=== PATIENT | male | born 1960 | race African-American/Black ===

== ENCOUNTER 2016-09-22 16:07 | Inpatient (IN) | payer MEDICARE ==
[~2016-09-22] VITALS: Ht 165.1 cm; Wt 96.5 kg
--- NOTE | ~2016-09-22 | HEMODYNAMI ---
PATIENT:TOAN BENTLEY MEDICAL RECORD: [id number] : 64 [id number] ADMISSION DATE: 09/22/16 Generatedon:09/23/201615:32 Patient name: TOAN BENTLEY Patient #: [id number] SSN: [id number] : 1960 Date of study: 09/23/2016 Page: Of Hemodynamic Procedure Report Patient Data Patient Demographics Procedure consent was obtained First Name: TOAN Gender: Male Last Name: SHEREE : 1960 Patient #: [id number] Age: 56 year(s) Race: Black SSN: [id number] Additional ID: [id number] Contact details Address: [address] [place] [address] State: [place] City: [place] Zip code: [address] Past Medical History Allergies: No known allergies Admission Admission Data Admission Date: 09/22/2016 Admission Time: 16:07 Admit Source: Other Insurance Payor: Medicare Room #: D.2135 Height (in.): 65 BSA: 2.06 (m2) Height (cm.): 165.1 BMI: 36.61 (kg/m2) Weight (lbs.): 220 Weight (kg.): 99.79 Lab Results Lab Result Date: 09/23/2016 Lab Result Time: 4:58 Biochemistry Name Units Result Min Max Creatinine mg/dl 3.7 --(----)-* 0.6 1.3 CBC Name Units Result Min Max Hemoglobin g/dl 8.1 *-(----)-- 13.5 17.5 Procedure Procedure Types Cath Procedure Diagnostic Procedure C [facility] w/Coronaries Miscellaneous Procedures Moderate Sedation up to 15 minutes Procedure Description Procedure Date Procedure Date: 09/23/2016 Procedure Start Time: 15:19 Procedure End Time: 15:29 Procedure Staff Name Function Prem Kenney MD Performing Physician Teodoro Hurd RT Scrub Damon Covington RN Nurse Bert Mack RT Monitor Indication Angina Procedure Data Cath Procedure Fluoroscopy Diagnostic fluoroscopy Total fluoroscopy Time: 1.2 time: 1.2 min min Diagnostic fluoroscopy Total fluoroscopy dose: 443 dose: 443 mGy mGy Contrast Material Contrast Material Type Amount (ml) Isovue 300 64 Entry Location Entry Primary Successful Side Size Upsize Upsize Entry Closure Succes sful Closure Location (Fr) 1 (Fr) 2 (Fr) Remarks Device Remarks Femoral Right 5 Fr Exoseal artery Estimated blood loss: 5 ml Diagnostic catheters Device Type Used For End Catheter Placement Cordis 5Fr JL 4.0 Procedure Catheter (MP) Cordis 5Fr 3DRC Catheter Procedure (MP) Cordis 5Fr Pigtail Procedure Catheter (MP) Procedure Complications No complications Procedure Medications Medication Administration Route Dosage Oxygen NC 2 l/min Lidocaine 2% added to field 20 Heparin Flush Bag added to field 2 bags (1000units/500ml NS) 0.9% NaCl I.V. 50 ml/hr Versed I.V. 1 mg Fentanyl I.V. 50 mcg Versed I.V. 1 mg Fentanyl I.V. 50 mcg Fentanyl I.V. 50 mcg Hemodynamics Rest BSA: 2.06 (m2) HGB: 8.1 (g/dl) O2 Consumption: Estimated: 252.72 (ml/min) O2 Con sumption indexed: Estimated:122.68 (ml/min/m) Heart Rate: 80 (bpm) Pressure Samples Time Site Value (mmHg) Purpose Heart Use Rate(bpm) 15:24 LV 136/12,22 Snapshot 77 15:25 AO 126/66(93) Pullback 77 15:25 LV 129/8,19 Pullback 77 Gradients Valve Time Site 1 Site 2 Mean SEP/DFP Peak To Heart Use (mmHg) (sec/min) Peak Rate (mmHg) (bpm) Aortic 15:25 LV AO 22 18 3 77 129/8,19 126/66(93) Calculations Valve P-P Mean Valve Index Valve Source Name Gradient Area Flow (cm2) Aortic 3 22 3 22 Snapshots Pre Cath Intra NCS Post Cath Vital Signs Time Heart Resp SPO2 etCO2 [id number] NIBP (mmHg) Rhythm Pain Sedation Rate (ipm) (%) (mmHg) (mmHg) Status Level (bpm) 14:46:28 73 18 96 0 0 153/83(120) NSR 0 (11) 10(A) , No pain 14:50:49 73 15 98 0 0 150/80(122) NSR 0 (11) 10(A) , No pain 14:55:11 69 22 99 0 0 148/78(126) NSR 0 (11) 10(A) , No pain 14:59:33 72 17 98 0 0 147/80(123) NSR 0 (11) 10(A) , No pain 15:03:51 71 15 96 0 0 153/79(116) NSR 0 (11) 10(A) , No pain 15:08:07 74 16 96 0 0 149/73(109) NSR 0 (11) 10(A) , No pain 15:12:19 76 16 96 0 0 145/80(131) NSR 0 (11) 10(A) , No pain 15:16:39 71 17 94 0 0 141/84(93) NSR 0 (11) 10(A) , No pain 15:20:59 69 16 97 0 0 138/78(111) NSR 0 (11) 9(A) , No pain 15:25:13 76 17 96 0 0 133/78(109) NSR 0 (11) 10(A) , No pain 15:27:51 72 15 96 0 0 138/79(102) NSR 0 (11) 10(A) , No pain Medications Time Medication Route Dose Verified Delivered Reason Notes Effe ctiveness by by 14:45:38 Oxygen NC 2 Prem Buffie used for l/min [facility] Kyle Covington trumpet player 15:10:13 Lidocaine 2% added 20ml Prem Prem for local to vial [facility] anesthetic field MD GRACIA 15:10:18 Heparin Flush added 2 Prem Prem used for Bag to bags [facility] procedure (1000units/500ml field MD GRACIA NS) 15:10:27 0.9% NaCl I.V. 50 Prem Buffie Per ml/hr [facility]. Kyle Coivngton RN physician 15:16:48 Versed I.V. 1 mg Prem Buffie for [facility] Kyle Covington RN sedation 15:16:53 Fentanyl I.V. 50 Prem Buffie for mcg [facility] Kyle Covington RN sedation 15:21:18 Versed I.V. 1 mg Prem Buffie for [facility] Kyle Covington RN sedation 15:21:22 Fentanyl I.V. [address] [facility] St[facility] Kyle Covington RN sedation 15:24:45 Fentanyl I.V. [address] [facility] St[facility] Kyle Covington RN sedation Procedure Log Time Note 14:20:28 Teodoro Hurd RT(R) sent for patient. Start room use. 14:29:33 Informed consent obtained and on chart 14:29:55 Diagnostic Cath Status : Elective 14:30:17 Indication : Angina 14:30:34 Time tracking: Regular hours 14:30:39 Plan of Care:Hemodynamics will remain stable., Cardiac rhythm will remain stable., Comfort level will be maintained., Respiratory function will remain adequate., Patient/ family verbilizes understanding of procedure., Procedure tolerated without complication., Recovers from procedure without complications.. 14:38:03 Patient received from Med II to CCL 1 Alert and oriented. Tansferred to table in Supine position. 14:38:04 Warm blankets applied, and rebel hugger turned on for patient comfort. 14:38:04 Correct patient and procedure confirmed by team. 14:38:16 ECG and BP/O2 sat monitors applied to patient. 14:45:13 Vital chart was started 14:45:17 Baseline sample Acquired. 14:45:20 Rhythm: sinus rhythm 14:45:38 Oxygen 2 l/min NC was given by Damon Covington RN; used for procedure; 14:46:35 Lab results completed and on chart. 14:47:07 Lab Result : Creatinine 3.7 mg/dl 14:47:07 Lab Result : Hemoglobin 8.1 g/dl 14:50:19 H&P Date Dictated: 09/22/2016 Within 30 days and on chart.. 14:50:21 Pre-procedure instructions explained to patient. 14:50:21 Pre-op teaching completed and patient verbalized understanding. 14:50:33 Family in patients room. 14:51:21 Patient NPO since Midnight. 14:52:56 Patient allergic to No known allergies 14:53:01 Is the patient allergic to Iodine/contrast media? No. 14:53:03 Is patient on blood thinner?No 14:53:50 Patient diabetic? No. 14:53:55 Previous problem with sedation/anesthesia? No ? 14:53:56 Snore? Yes 14:53:57 Sleep apnea? No 14:53:58 Deviated septum? No 14:53:58 Opens mouth fully? Yes 14:53:59 Sticks out tongue? Yes 14:54:01 Airway obstruction? No ? 14:54:02 Dentures? No ? 14:54:07 Pre procedure: right dorsailis pedis pulse 1+ Palpable, but thready & weak; easily obliterated 14:54:09 Patient pain scale 0/10 ?. 14:54:16 IV patent on arrival in right forearm with 0.9% NaCl at [facility]. 14:54:45 Right groin area was prepped with chlora-prep and draped in sterile fashion 14:54:46 Alarms reviewed by R. N. 14:54:47 Sharps counted by scrub and verified by R.N. 14:54:55 Use device set Femoral Dx 14:54:58 Tegaderm 4 x 4 opened to sterile field. 14:54:58 Acist Manifold opened to sterile field. 14:54:59 Acist Hand Control opened to sterile field. 14:55:00 Acist Syringe opened to sterile field. 14:55:01 Bag Decanter opened to sterile field. 14:55:01 Cardinal Cath Pack opened to sterile field. 14:55:02 Terumo 5Fr Perry Sheath opened to sterile field. 14:55:03 Cordis Infinity 5Fr Multipack catheter opened to sterile field. 14:59:01 Patient Weight : 220 lbs 14:59:01 Patient Height : 65 inches 14:59:05 Admit Source: Other 14:59:15 Insurance Payor : Medicare 15:10:13 Lidocaine 2% 20ml vial added to field was given by Prem Kenney MD; for local anesthetic; 15:10:18 Heparin Flush Bag (1000units/500ml NS) 2 bags added to field was given by Prem Kenney MD; used for procedure; 15:10:27 0.9% NaCl 50 ml/hr I.V. was given by Damon Covington RN; Per physician; 15:11:13 Zero performed for pressure channel P1 15:15:38 Physician arrived 15:15:39 --------ALL STOP TIME OUT------ 15:15:39 Final Timeout: patient, procedure, and site verified with staff and physician. All members of the team are in agreement. 15:15:41 Right groin site verified by team. 15:15:44 Physical assessment completed. ASA score P 3 - A patient with severe systemic disease as per Prem Kenney MD. 15:15:47 Sedation plan: IV Moderate Sedation Versed, Fentanyl 15:16:48 Versed 1 mg I.V. was given by Damon Covington RN; for sedation; 15:16:53 Fentanyl 50 mcg I.V. was given by Damon Covington RN; for sedation; 15:19:05 Procedure started. 15:19:05 Full Disclosure recording started 15:19:08 Local anesthetic to right femoral artery with Lidocaine 2% by Prem Kenney MD.INITIAL ACCESS ONLY 15:19:16 A 5 Fr sheath was inserted into the Right Femoral artery 15:20:39 A Cordis 5Fr JL 4.0 Catheter (MP) was advanced over the wire and used for Procedure. 15:20:40 LCA angiography performed. 15:21:18 Versed 1 mg I.V. was given by Damon Covington RN; for sedation; 15:21:22 Fentanyl 50 mcg I.V. was given by Damon Covington RN; for sedation; 15:21:52 Catheter removed. 15:22:23 A Cordis 5Fr 3DRC Catheter (MP) was advanced over the wire and used for Procedure. 15:23:12 RCA angiography performed. 15:23:18 Catheter removed. 15:23:22 A Cordis 5Fr Pigtail Catheter (MP) was advanced over the wire and used for Procedure. 15:24:16 St Hany 260cm J .035 wire opened to sterile field. 15:24:38 LV hemodynamics recorded. 15:24:42 Injector settings: Ml/sec: 10, Volume: 20, 15:24:45 Fentanyl 50 mcg I.V. was given by Damon Covington RN; for sedation; 15:24:51 LV gram done using SANTO 15:24:54 EF : 55 % 15:24:58 Catheter removed. 15:25:05 Cordis 5Fr Exoseal opened to sterile field. 15:25:49 Sheath removed intact; hemostasis achieved with Exoseal to the Right Femoral artery. 15:25:55 Procedure ended.(Physican Out) 15::21 Fluoroscopy time 01.20 minutes. 15:: Fluoroscopy dose: 443 mGy 15:26:26 Flurop Dose total: 443 15:27:09 Contrast amount:Isovue 300 64ml. 15:27:10 Sharps counted by scrub and verified by R.N. 15:27:13 Insertion/operative site no bleeding no hematoma. 15:27:16 Post-op/insertion site Right Femoral artery dressed using a 4 x 4 and Tegaderm. 15:27:19 Post right femoral artery:stable, soft, clean and dry 15:27:27 Post Procedure Pulses reassessed and unchanged 15:27:30 Post procedure rhythm: unchanged. 15:27:34 Post-procedure physical assessment completed. ASA score P 3 - A patient with severe systemic disease as per Prem Kenney MD. 15:27:37 Estimated blood loss: 5 ml 15:27:38 Post procedure instruction explained to patient.Patient verbalizes understanding. 15:27:39 Patient needs reinforcement of post procedure teaching. 15:28:06 Procedure type changed to Cath procedure, Diagnostic procedure, LHC, LHC w/Coronaries, Miscellaneous Procedures, Moderate Sedation up to 15 minutes 15:28:53 Procedure and supply charges have been captured, reviewed, submitted and are correct. 15:28:56 Procedure Complication : No complications 15:28:59 Vital chart was stopped 15:29:01 See physician's report for complete and final results. 15:29:08 Report given to PCU. 15:29:11 Patient transfered to PCU with Stretcher. 15:29:14 Procedure ended. 15:29:14 Full Disclosure recording stopped 15:29:31 End room use (Document Last) Device Usage Item Name Manufacture Quantity Catalog Hospital Part Current Minimal Lo t# / Number Charge Number Stock Stock Serial# Code Tegaderm 1 [id number] [id number] [id number] 5 4 x 4 Acist Acist 1 94302 798451 162003 287901 5 Manifold Medical Systems Inc Acist Acist 1 02456 039257 852632 858826 5 Hand Medical Control Systems Inc Acist Acist 1 97373 044145 460621 865198 20 Syringe Medical Systems Inc Bag Microtek 1 2002S 306023 08829 931475 5 [employer] Cardinal Cardinal [address] 645776 40636 423480 5 Cath Pack Soundflavor Terumo Terumo 1 [id number] 659179 526927 555611 40 5Fr Perry Sheath Cordis Cardinal 1 [id number] 505345 78743 505681 30 artandseekity Health 5Fr Multipack catheter Cordis Cardinal 1 073032 5 5Fr JL Health 4.0 Catheter (MP) Cordis Cardinal 1 358628 5 5Fr 3DRC Health Catheter (MP) Cordis Cardinal 1 805303 5 5Fr Health Pigtail Catheter (MP) St Hany St Hany 1 873454 021806 745617 511516 30 260cm J .035 wire Cordis Cardinal 1 EX500 337181 424680 803332 10 5Fr Health Exoseal Signature Audit Maxie Stage Time Signature Unsigned Intra-Procedure 09/23/2016 Bert Mack 3:32:38 PM RT(R) Signatures Monitor : Bert Mack RT Signature : Date : Time : [address] [address]
[~2016-09-22 16:07] MED LIST: HYDRALAZINE HCL25 MG PO; KLOR-CON M2020 MEQ PO; LASIX80 MG PO; NORMODYNE / TR200 MG PO; ULTRAM50 MG PO
[2016-09-22] MEDS ORDERED: ZOFRAN4 MG PO (16:27)
[2016-09-22] MEDS ORDERED: ENDOCET 10-3251 TAB PO (16:27)
[2016-09-22 16:39] VITALS: BP 123/83; BMI 38.0
[2016-09-22 16:45] VITALS: BP 128/83
[2016-09-22 20:02] VITALS: BP 209/98
--- NOTE | 2016-09-22 20:46 | NUR ---
AWAKE,ALERT, SITTING ON SIDE OF BED. COMPLAINS OF NAUSEA. ZOFRAN 4MG PO GIVEN PER REQUEST.SL TO RIGHT FOREARM INTACT WITHOUT REDNESS OR EDEMA NOTED. HEMISPLIT TO RIGHT CHEST WITHOUT REDNESS OR EDEMA. YU TO LEFT FORARM INTACT. NO DRAINAGE OR REDNESS NOTED. CL IN REACH.
--- NOTE | 2016-09-23 01:02 | NUR ---
Mr. Cancino had bedside hemodialysis today via his right chest hemosplit from 2154 untill 0032. Averageblood flow was 450 mls/minute. Removed the 350 mls from the volume of the prbc's I transfused as well as 3500 mls. Post vital signs were: B/P: 127/62, HR: 68, Temp: 97.5, Resps: 18.
[2016-09-23 01:11] VITALS: BP 139/74
--- NOTE | 2016-09-23 02:56 | NUR ---
RESTING QUIETLY. NO DISTRESS NOTED. CL IN REACH.
[2016-09-23 04:36] VITALS: BP 182/90
[2016-09-23 05:34] LABS: CALCIUM 8.8 mg/dL (8.5-10.1); CARBON DIOXIDE 29.6 mmol/L (21.0-32.0); CREATININE - SERUM 3.7 mg/dL (0.6-1.3); POTASSIUM - SERUM 3.6 mmol/L (3.5-5.1)
[2016-09-23 05:46] LABS: BASOPHILS 0.4 % (0.0-2.0); EOSINOPHILS 0.7 % (0-7); HEMATOCRIT 25.7 % (42.0-54.0); HEMOGLOBIN 8.1 g/dL (13.5-17.5); IMMATURE GRANULOCYTES 0.2 % (0-5); LYMPHOCYTES 14.5 % (15-50); MCH 26.8 pg (26.0-34.0); MCHC 31.5 g/dL (31.0-37.0); MCV 85.1 fL (80.0-100.0); MEAN PLATELET VOLUME 9.1 fL (7.4-10.4); MONOCYTES 7.8 % (2-11); NEUTROPHILS 76.4 % (40-80); PLATELET COUNT 247 10x3/uL (130-400); RBC 3.02 10x6/uL (4.20-6.10); RDW 14.5 % (11.5-14.5); WBC 8.5 10x3/uL (4.8-10.8)
--- NOTE | 2016-09-23 05:53 | NUR ---
AROUSES EASILY TO VERBAL STIMUL. NO CHANGE IN ASSESSSMENT
--- NOTE | 2016-09-23 07:26 | NUR ---
PT WAS OFFERED SCDS FOR DVT PROPHYLACTICS BUT PT REQUESTED TO NOT HAVE THEM IF POSSIBLE. ALLOWED PT TO REFUSE. NO FURTHER NEEDS AT THIS TIME. WILL CTM.
[2016-09-23 08:00] VITALS: BP 161/84
--- NOTE | 2016-09-23 10:08 | NUR ---
RESP UL ON 02 3L NC. YU TO LEFT ARM INTACT. CONSENTS SIGNED FOR [facility]. WILL CONT. PLAN OF CARE.
--- NOTE | 2016-09-23 11:21 | NUR ---
REC'D REPORT FROM TAMMIE OLIVER. ASSUMED CARE FOR THIS PT. INTRODUCED MYSELF TO PT, PT DENIES ANY CURRENT NEEDS. WILL CPOC.
[2016-09-23 12:00] VITALS: BP 141/77
[2016-09-23 12:19] VITALS: Ht 165.1 cm; Wt 96.5 kg
--- NOTE | 2016-09-23 13:21 | CN ---
PATIENT NAME:TOAN BENTLEY MEDICAL RECORD: [id number] : 64 LOCATION:[facility] D.2135 ADMIT DATE: 09/22/16 ACCOUNT: [id number] CONSULTING PHYSICIAN: VAMSHI BREWER MD REFERRING PHYSICIAN: RE CORCORAN MD DATE OF CONSULTATION: 09/23/2016 REFERRING PHYSICIAN: Re Corcoran MD. REASON FOR CONSULTATION: Chest pain. HISTORY OF PRESENT ILLNESS: This is a 56-year-old -Cuban male with a known history of cardiovascular disease. He had been seen in the past by Dr. Tilley and had a left heart cath back in 2012 and was told he had a 40% lesion, it is unknown as to what vessel. Other ongoing medical history includes a solitary kidney. He is status post right nephrectomy, hypertension, CHF and end-stage renal disease, on dialysis, for about 7 months. He presented to the [facility] with chest pain for 3 days with worsening shortness of breath, was noted to have an elevated proBNP of greater than 6000 with a normal troponin and EKG shows nonspecific T-wave abnormalities. He was transferred to [facility] under the care of Dr. Re Corcoran. He underwent emergent hemodialysis with 3.5 L fluid removal. We have been asked to see the patient due to his chest discomfort. At this point, we would proceed with a left heart cath to evaluate for progression of his coronary artery disease. REVIEW OF SYSTEMS: As per HPI. MEDICATIONS: See MAR. PHYSICAL EXAMINATION: GENERAL: Reveals a well-developed, well-nourished -Cuban male in no distress at the time of the exam. VITAL SIGNS: Stable. HEENT: Head is normocephalic. Pupils are equal and reactive to light. Extraocular muscles are intact. The mucous membranes are pink and moist. NECK: Supple. Trachea is midline. There is no JVD or carotid bruits. CARDIOVASCULAR: Reveals a regular rate and rhythm without murmur, gallop or rub. LUNGS: Clear and diminished bilaterally. ABDOMEN: Soft, bowel sounds positive. EXTREMITIES: He has no clubbing or cyanosis. He has a left upper arm fistula with a positive thrill and bruit. NEUROLOGIC: Cranial nerves II-XII are grossly intact. LABORATORY DATA: Have been reviewed. ASSESSMENT AND PLAN: 1. Chest pain with known history of coronary artery disease per patient report with a left heart cath [place] [address] Tilley with a 40% noted a lesion of unknown vessel origin. The patient does have negative cardiac enzymes, but nonfocal changes on his EKG. 2. Pulmonary edema. He is post-emergent hemodialysis with ultrafiltration of 3.5 L. 3. End-stage renal disease. This is being managed and followed by Dr. Marroquin CONSULT REPORT [id number] TOAN BENTLEY. 4. Hypertension. 5. Solitary kidney. RECOMMENDATIONS: Left heart cath. Further recommendations to follow. TRANSINT:[id number] Voice Confirmation ID: [id number] DOCUMENT ID: [id number] Dictated By: BETHANY FRIAS I have interviewed/examined the above patient and agree with these documented findings. VAMSHI BREWER MD at 1321 at 0948 CC: [id number] DICTATION DATE: 09/23/16 0829 FOUNDER AND PRESIDENT: 09/23/16 1041 ADM IN [place] [address] [place] [address]
--- NOTE | 2016-09-23 13:24 | NUR ---
TOWEL HEMMER CALLED FOR PREOP. PREOP COMPLETED. PT RESTING QUIETLY AWAITING PROCEDURE.
--- NOTE | 2016-09-23 14:32 | NUR ---
PT LEAVING FOR WIRE TEMPERER NOW.
[2016-09-23 16:00] VITALS: BP 134/65
--- NOTE | 2016-09-23 20:00 | NUR ---
PT RESTING IN BED. ALERT/ORIENTED. RESERVE LEFT ARM. RIGHT CHEST WALL HEMOSPLIT. HAS YU ON INNER LEFT FOREARM /AC AREA FROM WHERE HIS FISTULA WAS REMOVED 10 DAYS AGO. PERMISSION HAS BEEN GIVEN TO REMOVE YU. SR PER TELEMETRY. REVIEWED PLAN OF CARE.
[2016-09-23 20:39] VITALS: BP 104/37
--- NOTE | 2016-09-23 23:03 | NUR ---
HS MEDS GIVEN. MEDICATED WITH PERCOCET FOR PAIN AND THEN REMOVED ALL THE YU TO LEFT FOREARM/AC AREA FROM WHERE FISTULA WAS REMOVED. APPLIED STERI STRIPS TO INCISION. SITE WITH NO DRAINAGE OR REDNESS. WILL MONITOR.
[2016-09-24 00:47] VITALS: BP 107/41
[2016-09-24 04:56] VITALS: BP 108/52
[2016-09-24 05:38] LABS: BASOPHILS 0.4 % (0.0-2.0); EOSINOPHILS 2.7 % (0-7); HEMATOCRIT 24.5 % (42.0-54.0); HEMOGLOBIN 7.8 g/dL (13.5-17.5); IMMATURE GRANULOCYTES 0.2 % (0-5); LYMPHOCYTES 26.7 % (15-50); MCH 27.2 pg (26.0-34.0); MCHC 31.8 g/dL (31.0-37.0); MCV 85.4 fL (80.0-100.0); MEAN PLATELET VOLUME 8.8 fL (7.4-10.4); MONOCYTES 11.3 % (2-11); NEUTROPHILS 58.7 % (40-80); PLATELET COUNT 223 10x3/uL (130-400); RBC 2.87 10x6/uL (4.20-6.10); RDW 14.7 % (11.5-14.5)
[2016-09-24 05:45] LABS: WBC 5.7 10x3/uL (4.8-10.8)
[2016-09-24 06:00] LABS: ANION GAP 12.4 mmol/L (8-16); CALCIUM 8.8 mg/dL (8.5-10.1); CARBON DIOXIDE 30.3 mmol/L (21.0-32.0); POTASSIUM - SERUM 3.7 mmol/L (3.5-5.1)
[2016-09-24 06:01] LABS: CREATININE - SERUM 6.5 mg/dL (0.6-1.3); PHOSPHOROUS 5.5 mg/dL (2.5-4.9)
--- NOTE | 2016-09-24 06:39 | NUR ---
PT RESTING IN BED. NO CHANGE FROM INITIAL SHIFT ASSESSMENT, EXCEPT THAT ALL THE YU HAVE BEEN REMOVED FROM LEFT ARM AND HE TOLERATED WELL.
[2016-09-24 08:26] VITALS: BP 148/71
--- NOTE | 2016-09-24 11:14 | NUR ---
Patient Name: TOAN BENTLEY Admission Status: Elective Accout number: [id number] Admission Date: 09-22-2016 : 1960 Admission Diagnosis: Attending: STEVEN Current LOS: 2 Anticipated DC Date: 09-24-2016 Planned Disposition: Home Primary Insurance: MEDICARE A & B Discharge Planning Comments: * Is the patient Alert and Oriented? Yes 0 * How many steps to enter\exit or inside your home? 3-4 0 * PCP DR. FLORES, [place] 0 * Pharmacy [facility] [place] * Preadmission Environment Home with Family 0 * ADLs Independent 0 * Equipment None 0 * Other Equipment NO MEDICAL EQUIPMENT PROVIDER PREFERENCE 0 * List name and contact numbers for known caregivers / representatives who currently or will assist patient after discharge: JEANINE BENTLEY, SISTER, 0 * Community resources currently utilized Other 0 * Please name any agencies selected above. OUTPATIENT DIALYSIS, [facility] M//, 0645 AM, PT DRIVES SELF 0 * Additional services required to return to the preadmission environment? No 0 * Can the patient safely return to the preadmission environment? Yes 0 * Has this patient been hospitalized within the prior 30 days at any hospital? No 0 CM MET WITH PT IN ROOM TO DISCUSS DISCHARGE PLANNING AND NEEDS. PT REPORTS LIVING AT HOME INDEPENDENTLY WITH ADULT SISTER. PT HAS NO MEDICAL EQUIPMENT AND NO OUTSIDE SERVICES ASSISTING IN THE HOME. PT DRIVES HIMSELF TO AND FROM OUTPATIENT DIALYSIS IN [place] ON // SCHEDULE. CM DISCUSSED AVAILABILITY OF HOME HEALTH, REHAB SERVICES AND MEDICAL EQUIPMENT. PT DENIES DISCHARGE NEEDS, REPORTS HIS SISTER WILL PICK HIM UP FOR DISCHARGE HOME. IMPORTANT MESSAGE FROM MEDICARE PROVIDED AND EXPLAINED. Rating Examiner: Julio Cesar Oseguera
--- NOTE | 2016-09-24 11:21 | NUR ---
PT RESTING QUIETLY IN BED WATCHING TV. RR NONLABORED. DENIES ANY CURRENT PAIN OR NEEDS, AWAITING DIALYSIS SO HE CAN D/C AFTER IT TODAY.
[2016-09-24 12:10] VITALS: BP 122/69
[2016-09-24 16:25] VITALS: BP 130/63
--- NOTE | 2016-09-24 19:09 | NUR ---
D/C PTS R.FA PIV WITH CATHETER TIP FULLY INTACT. PROVIDED PT WITH NAUSEA MED AND PAIN PILL. DISCHARGE INSTRUCTIONS COMPLETED AND SIGNED IN CHART. NO FURTHER NEEDS, READY FOR DISCHARGE.
--- NOTE | 2016-09-27 08:57 | DS ---
PATIENT:TOAN BENTLEY :64 MEDICAL RECORD: [id number] DISCHARGE SUMMARY ADMISSION DATE: 09/22/16 DISCHARGE DATE: 09/24/16 HOSPITAL COURSE: This is a gentleman that was transferred from the [facility] with shortness of breath and pulmonary edema. He had been having some off and on chest pain for which he was brought down here to [place] and had a heart catheter with no significant vascular disease. He is going to have dialysis today with a unit of blood and will be discharged home on his home medications without any changes. He is on a renal diet with fluid restriction and we did need to adjust his dry weight. MEDICATIONS: Lasix is 80 mg a day on nondialysis days and if he needs too, he can take a second dose in the afternoon, labetalol 400 t.i.d., hydralazine 50 t.i.d., oxycodone 10/325 p.r.n., and Valium 5 mg q.h.s. p.r.n. and he does have some nitroglycerin ointment if he does need it. Rest of his review of systems are negative. He will follow up at dialysis. PHYSICAL EXAMINATION: GENERAL: He is alert and oriented times 3. HEENT: Normocephalic, atraumatic. HEENT: Grossly clear. VITAL SIGNS: Blood pressure 148/71, 96 pulse ox, 77 pulse and 98.1 temperature. EXTREMITIES: No clubbing, cyanosis or edema. Dialysis access, we removed the marva in his left arm, and he has an IJ tunneled catheter which is free of infection. Hematocrit was 24.5, but he is receiving a unit of blood the day prior to discharge. DIET: Continue with his renal diet. FOLLOWUP: At [facility] as scheduled, Tuesday, Wednesdays, and Fridays. He is to return to the Emergency Room for any problems. Stable on discharge. TRANSINT:[id number] Voice Confirmation ID: [id number] DOCUMENT ID: [id number] RE VASQUEZ MD at 0857 CC: [id number] DICTATION DATE: 09/24/16 1216 BUFFER MACHINE: 09/24/162211 DIS IN 09/24/16 [place] [id number] [facility], [place] [address]
--- NOTE | 2016-09-28 09:30 | OP ---
PATIENT NAME: TOAN BENTLEY MEDICAL RECORD: [id number] :64 LOCATION:D.M2 D.2135 ADMISSION DATE:09/22/16 SURGEON: VAMSHI BREWER MD DATE OF OPERATION: 09/23/2016 PROCEDURES: Left heart catheterization, selective coronary angiography, right femoral artery approach. CATHETERS: A 5-Haitian sheath, 5/4 left and right Duran, 5/4 pig. The procedure was well tolerated. The patient returned to the malave, sheath was removed. ExoSeal device was placed. FINDINGS: Left ventriculography in 30-degree SANTO view. Normal wall motion and normal systolic function. CORONARY ANATOMY: Left main: Left main is free of disease. LAD: Free of disease in the diagonal system. CIRCUMFLEX: Left dominant system. Circumflex is a large vessel, free of disease. RIGHT CORONARY ARTERY: Rudimentary, still fairly large, free of disease. IMPRESSION: Normal systolic function. Normal coronary anatomy. TRANSINT:[id number] Voice Confirmation ID: [id number] DOCUMENT ID: [id number] VAMSHI BREWER MD at 0930 CC: [id number] DICTATION DATE: 09/23/16 1536 RUBBER AND PLASTICS WORKER: 09/23/16 1606 DIS IN 09/24/16 [place] [id number] [place] [address]
== END 2016-09-24 19:11 | disposition home or self-care (01) | DRG 286 ==
LOC: D.M2 16:07
PROVIDERS: Internal Medicine Interventional Cardiology; ADMIT Internal Medicine Nephrology
PROC: 5A1D60Z (ICD-10-PCS; 2016-09-22)
PROC: B2151ZZ Fluoroscopy of Left Heart using Low Osmolar Contrast (ICD-10-PCS; 2016-09-23)
PROC: 4A023N7 Measurement of Cardiac Sampling and Pressure, Left Heart, Percutaneous Approach (ICD-10-PCS; 2016-09-23)
PROC: B2111ZZ Fluoroscopy of Multiple Coronary Arteries using Low Osmolar Contrast (ICD-10-PCS; principal; 2016-09-23 09:45)
DX: I25.10 Atherosclerotic heart disease of native coronary artery without angina pectoris (principal); N18.6 End stage renal disease; I12.0 Hypertensive chronic kidney disease with stage 5 chronic kidney disease or end stage renal disease; J81.1 Chronic pulmonary edema; Z99.2 Dependence on renal dialysis; D63.1 Anemia in chronic kidney disease; R09.02 Hypoxemia

== ENCOUNTER 2017-06-19 12:58 | Inpatient (IN) | payer MEDICARE ==
[~2017-06-19] VITALS: Ht 165.1 cm; Wt 88.5 kg
[2017-06-19] VITALS (36 sets, daily range): BP systolic 84–121; BP diastolic 41–59
[~2017-06-19 12:58] MED LIST changes: +ENDOCET 10-3251 TAB PO; +ZOFRAN4 MG PO
[2017-06-19 16:36] LABS: BASOPHILS 0.2 % (0-2); EOSINOPHILS 0.2 % (0-7); HEMATOCRIT 30.5 % (42.0-54.0); IMMATURE GRANULOCYTES 10.8 % (0-5); LYMPHOCYTES 3.8 % (15-50); MCH 26.9 pg (26.0-34.0); MCHC 32.8 g/dL (31.0-37.0); MEAN PLATELET VOLUME 9.7 fL (7.4-10.4); MONOCYTES 5.8 % (2-11); RBC 3.72 10x6/uL (4.20-6.10); RDW 17.6 % (11.5-14.5)
[2017-06-19 16:44] LABS: PLATELET COUNT 72 10x3/uL (130-400)
[2017-06-19 16:55] LABS: CARBON DIOXIDE 12.7 mmol/L (21.0-32.0); CREATININE - SERUM 2.1 mg/dL (0.6-1.3)
[2017-06-19 17:02] LABS: NEUTROPHILS 79.2 % (40-80); PLATELET ESTIMATE DECREASED
[2017-06-19 17:06] LABS: ANION GAP 32.1 mmol/L (8-16); CALCIUM 7.5 mg/dL (8.5-10.1); POTASSIUM - SERUM 5.8 mmol/L (3.5-5.1)
--- NOTE | 2017-06-19 19:15 | NUR ---
REC'S TO ROOM 2307 FROM [facility] VIA SURVIVAL FLIGHT. TRANSFERRED TO ICU BED BY TOTAL LIFT. CONNECTED TO MONITOR AND VS OBTAINED. CONNECTED TO VENT. NO ACUTE DISTRSS NOTED.
--- NOTE | 2017-06-19 19:30 | NUR ---
REPORT RECIEVED. ASSESSMENT COMPLETED. SEE FLOW SHEET FOR FURTHER DETAILS. PT POSITIONED FOR COMFORT. ORAL CARE DONE WILL CONTINUE TO MONITOR PT.
--- NOTE | 2017-06-19 21:00 | NUR ---
VISITORS AND DIALYSIS NURSE ALSO IN ROOM TO BEGIN DIALYSIS. FAMILY UPDATED. POSITIONED PT FOR COMFORT WILL CONTINUE TO MONITOR.
--- NOTE | 2017-06-19 23:00 | NUR ---
REASSESSMENT COMPLETED. NO ACUTE CHANGES AT THIS TIME. ORAL CARE DONE PT POSITIONED FOR COMFORT WILL CONTINUE TO MONITOR PT.
[2017-06-20] VITALS (28 sets, daily range): BP systolic 94–137; BP diastolic 47–70; Ht 165.1 cm; Wt 88.5 kg
--- NOTE | 2017-06-20 01:00 | NUR ---
PT SEDATED ON VENT. ORAL CARE DONE AND POSITIONED FOR COMFORT WILL CONTINUE TO MONITOR PT.
--- NOTE | 2017-06-20 03:00 | NUR ---
REASSESSMENT COMPLETED. SEE FLOW SHEET FOR FURTHER DETAILS. ORAL CARE DONE POSITIONED PT FOR COMFORT WILL CONTINUE TO MONITOR PT.
--- NOTE | 2017-06-20 05:00 | NUR ---
PT POSITIONED FOR COMFORT. ORAL CARE DONE. WILL CONTINUE TO MONITOR.
[2017-06-20 05:20] LABS: BASOPHILS 0.1 % (0-2); EOSINOPHILS 0.5 % (0-7); HEMATOCRIT 30.5 % (42.0-54.0); IMMATURE GRANULOCYTES 0.2 % (0-5); LYMPHOCYTES 2.9 % (15-50); MCHC 32.8 g/dL (31.0-37.0); MCV 82.4 fL (80.0-100.0); MEAN PLATELET VOLUME 10.2 fL (7.4-10.4); MONOCYTES 6.1 % (2-11); NEUTROPHILS 90.2 % (40-80); PLATELET COUNT 86 10x3/uL (130-400); RDW 17.5 % (11.5-14.5); WBC 14.5 10x3/uL (4.8-10.8)
[2017-06-20 05:37] LABS: ALBUMIN 2.1 g/dL (3.4-5.0); ANION GAP 17.6 mmol/L (8-16); BILIRUBIN - TOTAL 2.5 mg/dL (0.2-1.3); CALCIUM 8.3 mg/dL (8.5-10.1); POTASSIUM - SERUM 5.3 mmol/L (3.5-5.1); PROTEIN - SERUM 6.1 g/dL (6.4-8.2)
[2017-06-20 05:52] LABS: CARBON DIOXIDE 26.7 mmol/L (21.0-32.0); CREATININE - SERUM 8.3 mg/dL (0.6-1.3)
--- NOTE | 2017-06-20 08:02 | NUR ---
SHIFT ASSESSMENT COMPLETE. PATIENT IS IN STABLE CONDITION AT THIS TIME.
--- NOTE | 2017-06-20 09:53 | NUR ---
PATIENT HAS 20G CATH IN L HAND FLUSHED EASILY WITH SALINE 10ML AND GOOD BLOOD RETURN NOTED. IV 20G CATH NOTED IN L WRIST WITH DIPRIVAN INFUSING AT 20MCG/KG/MIN.
--- NOTE | 2017-06-20 12:21 | NUR ---
DR. MAO HERE IN TO SEE PATIENT AND TO SPEAK WITH FAMILY.
--- NOTE | 2017-06-20 12:30 | NUR ---
DECREASED DIPRIVAN TO 15MCG/KG/MIN PER DR. MAO'S ORDER.
--- NOTE | 2017-06-20 13:08 | NUR ---
JERARDO Rosario here for dialysis on patient.
--- NOTE | 2017-06-20 15:05 | NUR ---
PATIENT OPENS EYES WHEN TURNING OR DEEP STIMULI BUT IS NON PURPOSEFUL. WILL CONTINUE TO MONITOR.
--- NOTE | 2017-06-20 17:12 | NUR ---
DR. NAVA WANTED TO START TUBE FEEDING WITH NO ORDERS RECEIVED AT THIS TIME. SPOKE WITH DR. REYNOLDS AND WILL START TUBE FEEDINGS IN AM.
--- NOTE | 2017-06-20 17:26 | NUR ---
DECREASED DIPRIVAN TO 10MCG/KG/MIN. PATIENT ONLY OPENS EYES TO PAINFUL STIMULI BUT IS NOT PURPOSEFUL.
--- NOTE | 2017-06-20 19:24 | NUR ---
PT IN BED WITH EYES CLOSED ON VENTALATION. TOTAL VOLUME 500, PEEP 5, O2 30%, MA 14. SALINE LOCK TO LEFT HAND. LEFT WRIST WITH DIPROVAN AT 10MCG. D5NS AT 50 MLS/HR AND NS AT 5MLS/HR TO RIGHT IJ TRIALYSIS. VITAL SIGNS WITHIN NORMAL LIMITS AT THIS TIME. NO S/S OF DISTRESS NOTED. SHARPE AND RECTAL TUBE PATENT. SCDS ON BILATERAL LOWER EXTREMITES. NO CONCERNS NOTED AT THIS TIME. WILL CONTINUE TO OBSERVE.
--- NOTE | 2017-06-20 21:20 | NUR ---
PT IN BED CONTINUES INTUBATION. OCCASIONAL THRASHING LASTING 2-4 SECONDS NOTED WITH SEDATION INCREASED. NO OTHER CONCERNS NOTED AT THIS TIME. WILL CONTINUE TO OBSERVE.
--- NOTE | 2017-06-20 22:57 | NUR ---
PT IN BED UNDER SEDATION WITH VENTALATION. NO S/S OF DISTRESS NOTED. NO CONCERNS NOTED. WILL CONTINUE TO OBSERVE.
[2017-06-21] VITALS (55 sets, daily range): BP systolic 90–148; BP diastolic 43–80
--- NOTE | 2017-06-21 00:58 | NUR ---
PT IN BED WITH EYES CLOSED AND CONTINUES INTUBATION UNDER SEDATION. NO S/S OF DISTRESS NOTED. PT LYING ON BACK AT THIS TIME. WILL CONTINUE TO OBSERVE.
--- NOTE | 2017-06-21 03:12 | NUR ---
PT IN BED WITH EYES CLOSED AND CONTINUES WITH INTUBATION AND SEDATION. NO S/S OF DISTRESS. ORAL CARE PROVIDED AND REPOSITIONED TO RIGHT SIDE. NO CONCERNS NOTED. WILL CONTINUE TO OBSERVE.
[2017-06-21 05:08] LABS: BASOPHILS 0.1 % (0-2); EOSINOPHILS 1.1 % (0-7); HEMATOCRIT 29.4 % (42.0-54.0); HEMOGLOBIN 9.5 g/dL (13.5-17.5); IMMATURE GRANULOCYTES 0.3 % (0-5); LYMPHOCYTES 5.5 % (15-50); MCH 26.8 pg (26.0-34.0); MCHC 32.3 g/dL (31.0-37.0); MCV 82.8 fL (80.0-100.0); MONOCYTES 8.9 % (2-11); NEUTROPHILS 84.1 % (40-80); PLATELET COUNT 78 10x3/uL (130-400); RBC 3.55 10x6/uL (4.20-6.10); RDW 17.5 % (11.5-14.5)
--- NOTE | 2017-06-21 05:16 | NUR ---
PT CONTINUES SEDATION WITH VENTILATION WITH NO CHANGES MADE IN SETTINGS. CONTINUES DIPROVAN. NO S/S OF DISTRESS. WILL CONTINUE TO OBSERVE.
[2017-06-21 05:24] LABS: WBC 10.7 10x3/uL (4.8-10.8)
[2017-06-21 05:25] LABS: ALBUMIN 2.1 g/dL (3.4-5.0); ANION GAP 17.2 mmol/L (8-16); BILIRUBIN - TOTAL 2.14 mg/dL (0.2-1.3); CALCIUM 8.6 mg/dL (8.5-10.1); CARBON DIOXIDE 26.1 mmol/L (21.0-32.0); CREATININE - SERUM 7.1 mg/dL (0.6-1.3); PROTEIN - SERUM 6.3 g/dL (6.4-8.2)
[2017-06-21 05:30] LABS: INR 1.16 (0.85-1.17); POTASSIUM - SERUM 4.3 mmol/L (3.5-5.1); PROTIME 14.6 SECONDS (11.6-15.0)
[2017-06-21 05:31] LABS: APTT 81.4 SECONDS (22.8-39.4)
[2017-06-21 05:45] LABS: D-DIMER-QUANTITATIVE 7.57 ug/mLFEU (0.20-0.54)
--- NOTE | 2017-06-21 08:51 | NUR ---
0800 REPORT RECIEVED AND ASSESMENT DONE SEE FLOW SHEET FOR FINDINGS.. PT IS ON SEATION VACATION AND DR GRAYSON INUNIT SEEING PT.. UPDATE GIVEN TO HIM BY OFF GOING NURSE.. PT IS WITH OPEN EYES APPEARS TO TRACK BUT DOES NOT FOLLOW COMMANDS.. 0830 CT IN TO SEE PT FOR SCAN..
[2017-06-21 12:15] LABS: HEPATITIS C ANTIBODY <0.1 (0.0-0.9)
--- NOTE | 2017-06-21 16:31 | NUR ---
0845 CT NOT DONE AT THIS TIME.. 0900 FAMILY IN TO SEE PT AND UPDATE IS GIVEN.. 1030 EEG IN PROGRESS AT THE BEDSIDE.. 1200 WITHOUT CHANGES [address] VIA BED PORTABLE VENT IN USE AND RT ASSISTING 1245 BACK IN ROOM LINEN CHANGE DONE.. 1400 WAITING ON DIALYSIS .. ORDC IN ROOM AT THIS TIME.. 1600 WITHOUT VISITOR .. LAB DRAWN BY DIALYSIS NURSE FOR
--- NOTE | 2017-06-21 17:28 | NUR ---
1700 DIALYSIS CONTINUES ART THE BEDSIDE..
--- NOTE | 2017-06-21 19:25 | NUR ---
PT IN BED REMAINS UNDER SEDATION. NO S/S OF DISTRESS. DIPROVAN AT 40MCG TO LEFT WRIST. NS AT 5MLS/HR TO TRIALYSIS. VENT AT TV 500, PS 15, 02 30%, AND PEEP 5.0. TUBE 7 WITH LIP LINE 24. VITAL SIGNS WITHIN NORMAL LIMITS. NO CONCERNS NOTED AT THIS TIME. WILL CONTINUE TO OBSERVE.
--- NOTE | 2017-06-21 21:00 | NUR ---
PT CONTINUES SEDATIONS WITH VENT NO CHANGE IN SETTINGS. NO S/S OF DISTRESS. REMAINS WITH WRIST RESTRAINTS. NO CONCERNS NOTED AT THIS TIME. WILL CONTINUE TO OBSERVE.
[2017-06-22] VITALS (29 sets, daily range): BP systolic 102–130; BP diastolic 50–68
--- NOTE | 2017-06-22 02:54 | NUR ---
PT IN BED WITH CONTINUED SEDATION AND VENTILATION. NO CHANGE IN SETTINGS. NEPRO RUNNING AT 10MLS/HR VIA NGT. NO S/S OF DISTRESS WITH NO CONCERNS. WILL CONTINUE TO OBSERVE.
[2017-06-22 04:21] LABS: BASOPHILS 0.3 % (0-2); EOSINOPHILS 2.3 % (0-7); HEMOGLOBIN 9.4 g/dL (13.5-17.5); IMMATURE GRANULOCYTES 1.2 % (0-5); LYMPHOCYTES 9.3 % (15-50); MCH 26.6 pg (26.0-34.0); MCHC 31.3 g/dL (31.0-37.0); MCV 84.7 fL (80.0-100.0); MEAN PLATELET VOLUME 10.1 fL (7.4-10.4); MONOCYTES 15.6 % (2-11); NEUTROPHILS 71.3 % (40-80); RBC 3.54 10x6/uL (4.20-6.10); RDW 17.3 % (11.5-14.5)
[2017-06-22 04:22] LABS: PLATELET COUNT 61 10x3/uL (130-400); WBC 6.5 10x3/uL (4.8-10.8)
[2017-06-22 04:28] LABS: ALBUMIN 2.1 g/dL (3.4-5.0); ANION GAP 15.9 mmol/L (8-16); BILIRUBIN - TOTAL 1.95 mg/dL (0.2-1.3); CALCIUM 8.7 mg/dL (8.5-10.1); CARBON DIOXIDE 28.9 mmol/L (21.0-32.0); CREATININE - SERUM 5.4 mg/dL (0.6-1.3); MAGNESIUM - SERUM 1.8 mg/dL (1.8-2.4); POTASSIUM - SERUM 3.8 mmol/L (3.5-5.1); PROTEIN - SERUM 6.7 g/dL (6.4-8.2)
--- NOTE | 2017-06-22 05:10 | NUR ---
PT IN BED AND CONTINUES SEDATION WITH VENTILATION. NO CHANGES IN SETTINGS NOTED. NO CONCERNS NOTED. WILL CONTINUE TO OBSERVE.
--- NOTE | 2017-06-22 11:40 | NUR ---
NO RESIDUAL WITH TUBE FEEDING. INCREASED TO 20 ML HOUR. ETT SECURE WITH BILATERAL LUNG SOUNDS EQUAL. SUCTIONED LARGE AMOUNT PALE YELLOW SPUTUM. NG RIGHT NARES INFUSING WITH NEPRO. RIGHT ARM NO THRILL OR BRUIT WITH FISUTAL. RIJ TRIALYSIS INFUSING NS AT KVO FOR IVPB. SCD ON LOWER LEGS. SHARPE CATH WITH LITTLE URINE IN TUBING OR BAG. NONE IN RECTAL TUBE BAG.
--- NOTE | 2017-06-22 12:30 | NUR ---
NUTRITION F/U CHART REVIEWED, PT REMAINS ON VENT. NEPRO @ 20 CC/HR WITH GOAL RATE 40 CC/HR PER MD. GOAL RATE WILL PROVIDE 1728 KCAL, 78 GM PROTEIN PER DAY. WILL CONTINUE TO MONITOR PT PROGRESS. RD FOLLOWING
--- NOTE | 2017-06-22 13:09 | NUR ---
* Is the patient Alert and Oriented? Yes 0 * How many steps to enter\exit or inside your home? 4 0 * PCP Dr. Llamas in [place] Dr. Parrish in [place] (Telephone Exchange Operator) 0 * Pharmacy [facility] in [place] 0 * Preadmission Environment Home with Family 0 * ADLs Independent 0 * Equipment Hospital Bed 0 * List name and contact numbers for known caregivers / representatives who currently or will assist patient after discharge: Daughter - Rody Henley [phone] Sister - Aurea [phone] 0 * Can the patient safely return to the preadmission environment? Yes 0 * Has this patient been hospitalized within the prior 30 days at any hospital? No Patient Name: TOAN BENTLEY Admission Status: Elective Accout number: [id number] Admission Date: 06-19-2017 : 1960 Admission Diagnosis:HYPERKALEMIA Attending: QIAN MAO Current LOS: 3 Primary Insurance: MEDICARE A & B Discharge Planning Comments: Patient on vent. Spoke with daughter, Rody Henley via telephone. She reports patient lives with his sister, Aurea, and her . She reports patient was independent with all ADL's & AIDL's, driving himself to dialysis in [place] on MWF @ 0645. She states he recently got a hospital bed due to orthopnea and he was being evaluated for home O2 - had a overnight pulse ox study, but they had not gotten the results before he was hospitalized. She is hoping patient will be able to return home with his sister at discharge. CM will follow & assist with dc needs. Bender Helper: Sushma Guo
--- NOTE | 2017-06-22 18:38 | NUR ---
SEDATION COMPLETELY TURNED OFF FOR SEVERAL HOURS. PATIENT OBEYING COMMANDS. MOVES RIGHT HAND FINGERS ON REQUEST, AND LEFT HAND FINGERS ON REQUEST. WILL SQUEEZE HANDS ON REQUEST. TURNS EYES TOWARD VOICE. KEPT CHOKING ON ETT. COUGHING AGAINST VENT. DIPRIVAN TURNED BACK ON AT 20 MCG/KG/MIN, CONTINUED TO COUGH AGAINST THE VENT DIPRIVAN TURNED UP TO 30 MCG/KG/MIN. TUBE FEEDING TUNED UP TO 40 ML HOUR NO RESIDUALS NOTED. NO URINE EMPITED FROM SHARPE BAG. DIALYSIS IN PROGRESS
--- NOTE | 2017-06-22 19:15 | NUR ---
PT IN BED CONTINUES SEDATION AND VENTALATION. NO S/S OF DISTRESS. OCCASIONAL COUGH NOTED. RECEIVING DIALYSIS AT THIS TIME. DIPROVAN AT 30MCG VIA RIGHT SUBCLAVIAN TRIALYSIS WITH NO OTHER FLUIDS RUNNING AT THIS TIME. HOB 30 DEGREES. CONTINUES RESTRAINTS REMOVED WITH NO SKIN CONCERNS NOTED AT THIS TIME. NO CONCERNS NOTED. WILL CONTINUE TO OBSERVE.
--- NOTE | 2017-06-22 21:30 | NUR ---
PT IN BED CONTINUES WITH SEDATION WITH DIPROVAN AT 30MCG AND VENT WITH SETTINGS UNCHANGED. NO CONCERNS NOTED AT THIS TIME. CALL LIGHT IN REACH. WILL CONTINUE TO OBSERVE. DIALYSIS COMPLETED AND HAS LEFT UNIT.
--- NOTE | 2017-06-22 23:30 | NUR ---
PT IN BED CONTINUES SEDATION WITH INTUBATION. NO S/S OF DISTRESS NOTED. PT ON LEFT SIDE. NO CONCERNS NOTED AT THIS TIME. WILL CONTINUE TO OBSERVE.
[2017-06-23] VITALS (23 sets, daily range): BP systolic 99–121; BP diastolic 47–73
--- NOTE | 2017-06-23 01:25 | NUR ---
PT IN BED AND CONTINUES SEDATED. DRESSING TO TRIALYSIS CHANGED PER POLICY. NO CONCERNS NOTED. NO S/S OF DISTRESS. WILL CONTINUE TO OBSERVE.
--- NOTE | 2017-06-23 03:21 | NUR ---
PT CONTINUES SEDATION WITH VENT. NO CHANGE IN SETTINGS. NO S/S OF DISTRESS. NO CONCERNS NOTED. WILL CONTINUE TO OBSERVE.
[2017-06-23 03:59] LABS: BASOPHILS 0.4 % (0-2); EOSINOPHILS 2.4 % (0-7); HEMATOCRIT 31.3 % (42.0-54.0); HEMOGLOBIN 9.9 g/dL (13.5-17.5); IMMATURE GRANULOCYTES 4.8 % (0-5); LYMPHOCYTES 13.4 % (15-50); MCH 26.9 pg (26.0-34.0); MCHC 31.6 g/dL (31.0-37.0); MCV 85.1 fL (80.0-100.0); MONOCYTES 15.7 % (2-11); NEUTROPHILS 63.3 % (40-80); PLATELET COUNT 64 10x3/uL (130-400); RBC 3.68 10x6/uL (4.20-6.10); RDW 17.1 % (11.5-14.5); WBC 7.6 10x3/uL (4.8-10.8)
[2017-06-23 04:06] LABS: ALBUMIN 2.2 g/dL (3.4-5.0); ANION GAP 15.6 mmol/L (8-16); BILIRUBIN - TOTAL 1.61 mg/dL (0.2-1.3); CALCIUM 9.1 mg/dL (8.5-10.1); CARBON DIOXIDE 28.8 mmol/L (21.0-32.0); CREATININE - SERUM 4.9 mg/dL (0.6-1.3); MAGNESIUM - SERUM 2.1 mg/dL (1.8-2.4); POTASSIUM - SERUM 3.4 mmol/L (3.5-5.1); PROTEIN - SERUM 7.1 g/dL (6.4-8.2)
--- NOTE | 2017-06-23 05:42 | NUR ---
PT CONTINUES SEDATION WITH VENT. NO CHANGES IN VENT SETTINGS. DIPROVAN REDUCED TO 20MCG FROM 30MCG. NO CONCERNS NOTED. WILL CONTINUE TO OBSERVE.
--- NOTE | 2017-06-23 06:15 | NUR ---
PT CONTINUES SEDATION AND VENTALATION WITH NO CHANGE IN SETTINGS. DIPROVAN REDUCED TO 10MCG FOR 20MCG AND TOLERATING WELL. PT RESPONDS TO REQUEST TO SQUEASE HAND. NO CONCERNS NOTED AT THIS TIME. WILL CONTINUE TO OBSERVE
--- NOTE | 2017-06-23 07:04 | EEG ---
PATIENT:TOAN BENTLEY DATE OF SERVICE: 06/19/17 MEDICAL RECORD: [id number] DATE OF : 64 LOCATION:D.230 D.ICU ADMISSION DATE: 06/19/17 REFERRING PHYSICIAN: INTERPRETING PHYSICIAN: DARRYL GRAYSON MD DATE OF SERVICE: 06/21/2017 Referred by Darryl Grayson MD as an inpatient. Currently in room 2307. ELECTROENCEPHALOGRAM NUMBER: [id number]. DATE OF EXAMINATION: 06/21/2017 at 9:30 a.m. TECHNICAL DATA: This electroencephalographic recording consists of approximately 20 minutes of data collection utilizing the international 10/20 system of electrode placement in both referential and non-referential montages. Sixteen channels of electrocerebral recording are accompanied by a 17th channel dedicated to the electrocardiographic rhythm and 2 channels of electromyographic recording. Recording is performed entirely in the comatose state utilizing activation by photic stimulation. ELECTROENCEPHALOGRAPHIC DATA: The entirety of the recorded electrocerebral activity is performed in the comatose state. Electromyographic artifact is markedly reduced. Rapid eye movements are not seen. A posterior dominant background is not developed. The study is monotonous and consists of a mixture of slow-wave activities ranging from 1-4 Hz that are irregular in morphology, diffuse and symmetric in distribution. Near the end of the recording, there are a few brief episodes of more rhythmic slowing in the range of 5-6 Hz that occur asynchronously in the right and the left hemispheres. These last for only 1-2 seconds. No clinical correlate is observed. No epileptiform discharges are seen. Photic stimulation induces no change in the recorded electrocerebral activity. INTERPRETATION: Continuous slow, generalized (coma). This electroencephalographic recording is indicative of a moderately severe diffuse encephalopathy. TRANSINT:[id number] Voice Confirmation ID: [id number] DOCUMENT ID: [id number] DARRYL GRAYSON MD at 0704 CC: [id number] DICTATION DATE: 06/22/17 07 ENAMEL APPLIER: 06/22/17 1320 ADM IN [facility] [address] [place] [address]
--- NOTE | 2017-06-23 16:23 | NUR ---
0800 AM ASSESMENT IS COMPLETE SEE FLOW SHEET FOR FINDINGS.. PT IS ON SEDATION VACATION FOR WEANING TRIAL.. AWAKE AND RESPONDS APPROPRIATLY TO COMMANDS.. CONTINUES ORALLY INTUBATED AND ON VENT.. TUBE FFEEDING IS ON AT THIS TIME AT 440CC/HR.. IV FLUID IS INFUSING INTO THE RIGHT IJ TRIALYSIS CATH.. WITHOUT FAMILY AT TTHIS TIME.. 1000 PT CONTINUES WITHOUT CHANGES.. 1130 DR REYNOLDS IN UNIT AND SEEING PT.. RT IN THE ROOM WITH HIM... PT PLACED ON CPAP AT THIS TIME AND TUBE FEEDING IS TURNED OFF IN READY FOR EXTUBATION.. 1200 FAMILY IN TO SEE PT AND UPDATE IS GVEIN.. 1330 PT IS EXTUBATED BY RT AT TTHIS TIMEE AND PLACED ON 4 L NS O2.. PT IS WITH A HOARSE VOICE BUT CAN WHISPER AND IS APPROPRIATE IN HIS RESPONSES.. FAMILY REMAINS AT TTYHE BEDSIDE AND IS GIVENING PT ORAL CARE AND MOISTENING MOUTH... 1500 COMPLETE BATH AND LINEN CHANGE AT THIS TIME.. PIV REMOVED FROM PT LEFT JEROME AND IV FFLUID IS NOW INFUSING INTO NURSE PORT OF THE TRIALYSIS CATHETER.. PT REMAINS WEAK BUT CONTINUES APPROPRIATE IN RESPONSES... 1600 FAMILY MEMBER IS AT TT BEDSIDE..
--- NOTE | 2017-06-23 16:30 | NUR ---
1600 WRIST RESTRAINTS ARE REMOVED AT THIS TIME..
--- NOTE | 2017-06-23 18:26 | NUR ---
1700 FAMILY IN TO SEE PT.. 1800 WITHOUT CHANGES IN STATUS..
--- NOTE | 2017-06-23 19:30 | NUR ---
SHIFT ASSESSMENT COMPLETE. PT IS LETHARGIC AND ORIENTED TO PERSON AND PLACE. HIS SPEECH IS GARBLED AND SOFT AND IT IS HARD TO UNDERSTAND HIM AT TIMES. PERRLA, 3 MM, BRISK REACTION TO LIGHT. EQUAL BUT WEAK HAND SENIOR OPERATIONS MANAGER AND FOOT PUMPS. HE IS ABLE TO FOLLOW ALL COMMANDS, BUT THEY ARE DELAYED BY A FEW SECONDS. PT HAS A SORE ON THE RIGHT SIDE OF HIS UPPER LIP. ORAL CARE PROVIDED, MOUTH MOISTURIZER APPLIED. V/S: HR 97 BPM, NORMAL SINUS RHYTHM, RR 16, REGULAR AND EVEN, CRACKLES HEARD BILAT THROUGHOUT ALL LOBES, O2 SAT 99%, NC @ 4 L/MIN, TEMP 98.8, AXILLARY, BP 112/57, NIBP ON L ARM. PT IS RIGHT ARM RESERVE. R IJ TRIALYSIS CATH INFUSING NS @ 5 ML/HR, DRESSING CDI, BIOPATCH AND SWAB CAPS IN USE. R LOWER ARM HAS A SMALL INCISION, CDI. BILAT ARMS HAVE BRUISING NOTED, AND THE L ARM HAS A SCAR ROUGHLY 3-4 CM IN LENGTH. ABD IS FIRM, HYPOACTIVE BS X4, RECTAL TUBE IN PLACE, LIGHT BROWN DIARRHEA IN COLLECTION BAG. SHARPE CATH INTACT DRAINING DARK CONCENTRATED URINE, ONLY A SCANT AMOUNT NOTED. SCDS REMOVED AND SKIN ASSESSED, WNL. REPOSITIONED FOR COMFORT. HE DENIES ANY REQUESTS AT THIS TIME. WILL CONT WITH POC.
--- NOTE | 2017-06-23 21:20 | NUR ---
REPOSITIONED PT FOR COMFORT DUE TO SLIGHT BACK PAIN. PILLOW PLACED UNDER THE R SIDE OF HIS BACK, HE STATES HE FEELS MUCH BETTER AT THIS TIME. 2100 MEDS ADMINISTERED WITH NO ISSUES. HE DENIES ANY REQUESTS. WILL CONT WITH POC.
--- NOTE | 2017-06-23 23:30 | NUR ---
REASSESSMENT COMPLETE. REPOSITIONED FOR COMFORT. ORAL CARE PROVIDED. PT'S O2 SAT DECREASED TO 88%. INSTRUCTED HIM TO TAKE DEEP BREATHS THROUGH HIS NOSE AND INCRASED HIS O2 TO 7 L/MIN. HIS O2 IS NOW BACK DOWN AT 4 L/MIN AND HIS O2 SAT IS 98-99%. HE DENIES ANY PAIN AT THIS TIME. S1S2 AUDIBLE, HR 97 BPM, NORMAL SINUS RHYTHM. CRACKLES HEARD BILAT THROUGHOUT ALL LOBES. ABD IS TIGHT. RECTAL TUBE AND SHARPE INTACT. PT IS A&O TO PLACE AND PERSON. HIS SPEECH IS GETTING LOUDER AND STRONGER. WILL CONT WITH POC. BED IN LOWEST POSITION. HE DENIES ANY REQUESTS.
[2017-06-24] VITALS (25 sets, daily range): BP systolic 111–135; BP diastolic 51–90
--- NOTE | 2017-06-24 01:10 | NUR ---
ORAL CARE PROVIDED. PT REQUESTS TO STAY ON HIS BACK AND HE STATES THAT HE IS COMFORTABLE. VSS. WILL CONT WITH POC.
[2017-06-24 04:38] LABS: BASOPHILS 0.3 % (0-2); EOSINOPHILS 2.4 % (0-7); HEMATOCRIT 30.8 % (42.0-54.0); HEMOGLOBIN 9.7 g/dL (13.5-17.5); IMMATURE GRANULOCYTES 4.1 % (0-5); MCH 26.9 pg (26.0-34.0); MCHC 31.5 g/dL (31.0-37.0); MCV 85.3 fL (80.0-100.0); MEAN PLATELET VOLUME 10.7 fL (7.4-10.4); MONOCYTES 11.1 % (2-11); NEUTROPHILS 69.1 % (40-80); PLATELET COUNT 82 10x3/uL (130-400); RBC 3.61 10x6/uL (4.20-6.10); RDW 16.9 % (11.5-14.5); WBC 9.3 10x3/uL (4.8-10.8)
[2017-06-24 04:52] LABS: ALBUMIN 2.1 g/dL (3.4-5.0); ANION GAP 18.4 mmol/L (8-16); BILIRUBIN - TOTAL 1.58 mg/dL (0.2-1.3); CALCIUM 9.1 mg/dL (8.5-10.1); CARBON DIOXIDE 28.3 mmol/L (21.0-32.0); CREATININE - SERUM 6.9 mg/dL (0.6-1.3); MAGNESIUM - SERUM 2.5 mg/dL (1.8-2.4); POTASSIUM - SERUM 3.7 mmol/L (3.5-5.1)
--- NOTE | 2017-06-24 05:00 | NUR ---
REPOSITIONED PT FOR COMFORT. HE DENIES ANY NEEDS AT THIS TIME. ORAL CARE PROVIDED. VSS. WILL CONT WITH POC.
--- NOTE | 2017-06-24 07:00 | NUR ---
REASSESSMENT COMPLETE. NO CHANGES FROM PREVIOUS ASSESSMENT. PT IS A&O TO PERSON AND PLACE. HIS SPEECH IS GETTING STRONGER. HE IS ABLE TO FOLLOW ALL COMMANDS APPROPRIATELY. VSS. WILL CONT WITH POC.
--- NOTE | 2017-06-24 07:20 | NUR ---
REC'D REPORT FROM OUTGOING RN - PT RESTING SUPINE IN BE AA&OX3 - NOT ORIENTED TO PLACE OR TIME - C/O PAIN IN RIGHT ANKLE - WILL NOTIFY MD Kee ERNST- CPOC
--- NOTE | 2017-06-24 08:40 | NUR ---
Nutrition follow-up: Pt extubated 06/23/17; failed swallow eval Labs reviewed Rectal tube in place Wt: 194# Recommend resuming Nepro @ 20 ml/hr with increase to goal rate of 40 ml/hr RDN following.
--- NOTE | 2017-06-24 08:45 | NUR ---
rd AT BEDSIDE FOR REVIEW AND ASSESSMENT - ORDERED RESTART NEPRO 240 AT 20ML/HR GOAL AT 40ML/HOUR CPOC
--- NOTE | 2017-06-24 09:30 | NUR ---
CONVEYOR MAINTENANCE MECHANIC AT BEDSIDE FOR DAILY PROCEDURE - ASSITED WITH TURN - CPOC
--- NOTE | 2017-06-24 10:50 | NUR ---
ASSESSMENT COMPLETE - DIRECT SUPPORT WORKER INFORMED THIS RN CHNAGE OF DIALYSIS DAYS TUESDAY, TUESDAY, AND TUESDAY. - PT RESTING
--- NOTE | 2017-06-24 11:45 | NUR ---
SPOKE TO LUCHO SPEECH THERAPIST - COMPLETED ASSESSMENT - WILL CHANGE ORDER TO THICKEN LIQUIDS - AWAITING ORDERS - CPOC - PT CONTINUES TO BE AWAKE DURING DIALYSIS WITH RN AT BEDSIDE - CPOC
--- NOTE | 2017-06-24 13:00 | NUR ---
DR. REYNOLDS AT BEDSIDE FOR ASSESSMENT - INFORMED OF RIGHT ANKLE PAIN - MD ORDERED ANKLE X-RAY - WILL F/U WITH X-RAY - CPOC
--- NOTE | 2017-06-24 13:17 | NUR ---
FIFI MANGLE PRESS CATCHER STATED TOOK 2 LITERS OFF - RAN FOR 3 HOURS - PT RESTING - LUNCH TRAY AT BEDSIDE - CPOC
--- NOTE | 2017-06-24 15:00 | NUR ---
ASSESSMENT COMPLETE - PT RESTING WITH EYES CLOSED - RESPIRATIONS REG RATE AND RHYTHM - CPOC
--- NOTE | 2017-06-24 16:15 | NUR ---
i&O COMPLETE - ASSISTED PT WITH DINNER TRAY - PT DECREASED APPETITE - PT MORE CLEAR IN SPEECH. CPOC
--- NOTE | 2017-06-24 18:30 | NUR ---
PT ASKED THIS RN TO CALL HIS DAUGHTER - CALLED DAUGHTER - VERIFIED ID PER [facility] SECURE QUESTIONS - DTR CONCERNED PT WILL HAVE A PANIC ATTACK TO WHY HE IS IN THE HOSPITAL - PT WON'T REMEMBER ANYTHING SINCE TUESDAY - DTR WILL COME TO VISITATION AT 1999 - SHE WILL ASK PM RN TO ACCOMPANY HER SHE UPDATES PT ON HIS SITUATION. CPOC
--- NOTE | 2017-06-24 19:45 | NUR ---
SHIFT ASSESSMENT COMPLETE. PT IS A&O X4 WITH NO COMPLAINTS OF PAIN EXCEPT WHEN I AM TOUCHING HIS RIGHT ANKLE. HE STATES THAT HE IS IN NO OTHER PAIN OTHER THAN THAT. HIS ARMS ARE WEAK AND HE IS NOT ABLE TO GRASP THINGS EASILY. HAND CUSTOMER SERVICE CONSULTANT AND FOOT PUMPS ARE EQUAL. S1S2 AUDIBLE, HR 100 BPM NORMAL SINUS RHYTHM. RR REGULAR AND EVEN, O2 SAT 98%. PT IS ON 3 L VIA NC. R SUBCLAVIAN TRIALYSIS CATH INFUSING NS @ 5 ML/HR. DRESSING IS CDI, BIOPATCH IN USE. ABD IS FIRM AND ROUND, HYPOACTIVE BS X4, RECTAL TUBE IN PLACE. SHARPE CATH INTACT DRAINING DARK URINE. PT REFUSES TO WEAR SCD'S AT THIS TIME. EDUCATED HIM ON THE BENEFITS OF THE SCD'S, BUT HE STILL STATED THAT HE DID NOT WANT THEM ON. RADIAL AND PEDAL PULSES PALP. R AC HAS SMALL INCISION, CDI, NO DRAINAGE NOTED. BILAT ARMS HAVE SCABS/SORES AND SCARRING. R HEEL HAS LARGE BRUISE. ORAL CARE PROVIDED. REPOSITIONED FOR COMFORT. CALL LIGHT IN REACH. BED IN LOWEST POSITION. WILL CONT TO MONITOR.
--- NOTE | 2017-06-24 21:20 | NUR ---
FAMILY AT BEDSIDE. UPDATED FAMILY ON PT CONDITION. HE STATED THAT HE FEELS LIKE HE HAS TO USE THE RESTROOM. INSTRUCTED FAMILY TO STEP OUT FOR A BRIEF MOMENT. D/C RECTAL TUBE. PT HAS SMALL FORMED LIGHT BROWN STOOL. FAMILY BACK IN AT BEDSIDE. WILL CONT WITH POC.
--- NOTE | 2017-06-24 23:30 | NUR ---
REASSESSMENT COMPLETE. PT IS RESTING PEACEFULLY WITH NO SIGNS OF ACUTE DISTRESS NOTED. V/S REMAIN STABLE. ORAL CARE PROVIDED. ASSISTED PT TO BEDPAN, SMALL SEMI FORMED LIGHT BROWN STOOL NOTED. NO NEEDS AT THIS TIME. CALL LIGHT IN REACH. BED IN LOWEST POSITION. WILL CONT TO MONITOR.
[2017-06-25] VITALS (10 sets, daily range): BP systolic 103–135; BP diastolic 45–67
--- NOTE | 2017-06-25 01:30 | NUR ---
PT RESTING PEACEFULLY WITH NO SIGNS OF ACUTE DISTRESS NOTED. CALL LIGHT IN REACH. BED IN LOWEST POSITION. PT IN VIEW OF NURSE'S STATION. WILL CONT TO MONITOR.
--- NOTE | 2017-06-25 03:30 | NUR ---
REASSESSMENT COMPLETE. PT DENIES ANY PAIN AT THIS TIME. HE STATES THAT HE DOES HAVE A MILD ABRAMS. VSS. NO CHANGES FROM PREVIOUS ASSESSMENT. ORAL CARE PROVIDED AND REPOSITIONED FOR COMFORT. HE IS ABLE TO MOVE HIMSELF. HE DENIES ANY NEEDS AT THIS TIME. WILL CONT WITH POC.
[2017-06-25 05:14] LABS: BASOPHILS 0.4 % (0-2); EOSINOPHILS 2.1 % (0-7); HEMATOCRIT 32.6 % (42.0-54.0); HEMOGLOBIN 10.3 g/dL (13.5-17.5); IMMATURE GRANULOCYTES 3.3 % (0-5); LYMPHOCYTES 12.9 % (15-50); MCHC 31.6 g/dL (31.0-37.0); MCV 85.3 fL (80.0-100.0); MEAN PLATELET VOLUME 10.7 fL (7.4-10.4); MONOCYTES 8.6 % (2-11); NEUTROPHILS 72.7 % (40-80); RBC 3.82 10x6/uL (4.20-6.10); RDW 16.8 % (11.5-14.5); WBC 11.2 10x3/uL (4.8-10.8)
[2017-06-25 05:17] LABS: PLATELET COUNT 133 10x3/uL (130-400)
[2017-06-25 05:26] LABS: ANION GAP 19.4 mmol/L (8-16); CALCIUM 9.4 mg/dL (8.5-10.1); CREATININE - SERUM 5.6 mg/dL (0.6-1.3); POTASSIUM - SERUM 3.4 mmol/L (3.5-5.1)
--- NOTE | 2017-06-25 05:29 | NUR ---
REFILLED PT'S REFRESHMENTS. HE DENIES ANY PAIN OR DISCOMFORT AT THIS TIME. VSS. WILL CONT WITH PCO.
--- NOTE | 2017-06-25 08:22 | NUR ---
UP IN BED AT THIS TIME EATING BREAKFAST VIA SET UP ASSIST NO ACUTE DISTRESS NOTED. ABLE TO STATE NEEDS. WILL CONTINUE PLAN OF CARE.
--- NOTE | 2017-06-25 10:23 | NUR ---
CONTINENT BOWEL MOVEMENT AT THIS TIME VIA BEDPAN, MEDIUM BROWN AND FORMED. CLEANED UP VIA TOATL ASSIST. PT TURNS SELF VIA MODERATE ASSIST. NO ACUTE DISTRESS NOTED. WILL CONTINUE PLAN OF CARE.
--- NOTE | 2017-06-25 12:26 | NUR ---
NOTED PT TO TRANSFER TO ROOM 2105. WILL CALL REPORT SHORTLY.
--- NOTE | 2017-06-25 13:15 | NUR ---
PT TRANSFERRED WITH ALL PERSONAL ITEMS. FAMILY AWARE. NO ACUTE DISTRESS NOTED. REPORT GIVEN NO ADRIENNE. NO FURTHER ACTIONS.
--- NOTE | 2017-06-25 13:21 | NUR ---
RECEIVED PATIENT AT 1305 FROM ICU VIA BED. PATIENT ALERT/ORIENTED. PATIENT ABLE TO MINIMALLY ASSIST WITH TRANSFER BETWEEN BEDS. CALL LIGHT PLACED WITHIN REACH. PATIENT REFUSED SCD'S TO BE APPLIED TO BILATERAL LOWER EXTREMITIES. SCDSARE CONNECTED TO SCD MACHINE AND READY TO BE APPLIED IF PATIENT CHANGES HIS MIND. PATIENT WITH MANY FAMILY MEMBERS AT BEDSIDE AT THIS TIME. NO DISTRESS.
--- NOTE | 2017-06-25 13:57 | NUR ---
THICKENED WATER PROVIDED TO PATIENT. PATIENTS FAMILY AT BEDSIDE. NO DISTRESS.
[2017-06-25 14:12] LABS: FACTOR VIII - APTT 28.6 sec (22.9-30.2); FACTOR VIII - APTT 1:1 NP 25.6 sec (22.9-30.2); FACTOR VIII ACTIVITY 313 % (57-163)
--- NOTE | 2017-06-25 14:40 | NUR ---
JC MADDOX PATIENT IS REQUESTING SHARPE CATHETER REMOVED DUE TO DISCOMFORT. PATEINT AND FAMILY ALSO STATE THAT PATIENT USED TO TAKE ALLOPURINOL AND FEEL THAT GOUT IS THE CAUSE OF DISCOMFORT IN PATIENTS FOOT.
--- NOTE | 2017-06-25 14:52 | NUR ---
RECEIVED ORDERS FROM CECILIO VALLES TO D/C SHARPE CATHETER AND START ALLOPURINOL 100MG DAILY IN AM. ORDERS INPUTTED.
--- NOTE | 2017-06-25 15:05 | NUR ---
SHARPE CATHETER REMOVED, 18FR. SCANT BLOOD NOTED UPON REMOVAL OF FC. TOLERATED REMOVAL WELL. NO DISTRESS.
--- NOTE | 2017-06-25 15:36 | NUR ---
PATIENT COMPLAINING OF HEEL PAIN. UPON ASSESSMENT PATIENT FOUND TO HAVE BILATERAL DTI TO BILATERAL HEELS. RIGHT HEEL MEASURES APPROX 4X7 AND LEFT HEEL MEASURES APPROX 4X4. CAVILON SKIN PROTECTANT APPLIED TO BILATERAL HEELS. PINK HEEL PROTECTORS APPLIED. PATIENT PAIN IS DIRECTLY AT SITE OF DTI. PATIENT MADE AWARE OF FINDINGS TO BILATERAL HEELS.
--- NOTE | 2017-06-25 16:23 | NUR ---
RESTING IN BED. FAMILY AT BEDSIDE. NO DISTRESS. DENIES NEEDS AT THIS TIME.
[2017-06-25 17:09] LABS: PLT AB - HLA CLASS 1 Negative (Negative); PLT AB - IIb IIIa Negative (Negative); PLT AB - Ia IIa Negative (Negative); PLT AB - Ib IX Negative (Negative)
--- NOTE | 2017-06-25 19:39 | NUR ---
RECEIVED REPORT, WILL ASSUME CARE OF PT, PT LAYING IN BED, DENIES ANY NEEDS AT THIS TIME, BED IS LOW, SRX2, CALL LIGHT IN REACH, WILL CONTINUE PLAN OF CARE
[2017-06-26] VITALS: BP 110/45
--- NOTE | 2017-06-26 03:55 | NUR ---
ASSESSMENT COMPLETE, SEE FLOWSHEET, KIZZY ALARM ON, BED IS LOW, SRX2, CALL LIGHT IN REACH, WILL CONTINUE PLAN OF CARE
[2017-06-26 04:00] VITALS: BP 114/46
--- NOTE | 2017-06-26 08:28 | NUR ---
AM ROUNDS - PT IS IN BED AND AWAKE AT THIS TIME. YELLOW BAND ON. KIZZY MAT ALARM ON AND WORKING. PT ON 3L O2 VIA NC. BED AT LOWEST POSITION. SIDE RAILS UP X2. CALL EDWARDS IN USE/REACH. RIGHT SUBLAV TRIALYSIS. NO NEEDS AT THIS TIME. WILL CONTINUE TO MONITOR
[2017-06-26 09:25] LABS: BASOPHILS 0.3 % (0-2); EOSINOPHILS 2.4 % (0-7); HEMATOCRIT 32.8 % (42.0-54.0); HEMOGLOBIN 10.4 g/dL (13.5-17.5); IMMATURE GRANULOCYTES 1.7 % (0-5); LYMPHOCYTES 12.1 % (15-50); MCH 26.8 pg (26.0-34.0); MCHC 31.7 g/dL (31.0-37.0); MCV 84.5 fL (80.0-100.0); MEAN PLATELET VOLUME 9.8 fL (7.4-10.4); MONOCYTES 7.3 % (2-11); NEUTROPHILS 76.2 % (40-80); PLATELET COUNT 174 10x3/uL (130-400); RBC 3.88 10x6/uL (4.20-6.10); RDW 16.5 % (11.5-14.5); WBC 10.5 10x3/uL (4.8-10.8)
[2017-06-26 09:46] LABS: ANION GAP 20.3 mmol/L (8-16); CALCIUM 8.8 mg/dL (8.5-10.1); CARBON DIOXIDE 26.2 mmol/L (21.0-32.0); POTASSIUM - SERUM 3.5 mmol/L (3.5-5.1)
[2017-06-26 09:47] LABS: CREATININE - SERUM 7.9 mg/dL (0.6-1.3)
[2017-06-26 12:04] VITALS: BP 102/44
[2017-06-26 14:08] LABS: HEPARIN INDUCED PLATELET AB 0.568 OD (0.000-0.400)
[2017-06-26 16:12] VITALS: BP 102/45
--- NOTE | 2017-06-26 18:46 | NUR ---
PT RESTING IN BED WITH NO NEEDS AT THIS TIME. WILL CONTINEU TO MONITOR
--- NOTE | 2017-06-26 19:22 | NUR ---
RECEIVED REPORT, WILL ASSUME CARE OF PT, PT TALKING ON PHONE, DENIES ANY NEEDS AT THIS TIME, BED IS LOW, SRX2, WILL CONTINUE PLAN OF CARE
--- NOTE | 2017-06-26 19:30 | NUR ---
ASSISTED PT TO BEDSIDE COMMODE
[2017-06-26 20:00] VITALS: BP 123/48
[2017-06-27] VITALS: BP 121/44
[2017-06-27 04:00] VITALS: BP 132/51
[2017-06-27 05:38] LABS: BASOPHILS 0.4 % (0-2); EOSINOPHILS 2.1 % (0-7); HEMATOCRIT 32.5 % (42.0-54.0); HEMOGLOBIN 10.3 g/dL (13.5-17.5); IMMATURE GRANULOCYTES 1.4 % (0-5); LYMPHOCYTES 17.7 % (15-50); MCH 26.8 pg (26.0-34.0); MCHC 31.7 g/dL (31.0-37.0); MCV 84.4 fL (80.0-100.0); MONOCYTES 8.4 % (2-11); RBC 3.85 10x6/uL (4.20-6.10); RDW 16.3 % (11.5-14.5); WBC 9.3 10x3/uL (4.8-10.8)
[2017-06-27 05:41] LABS: PLATELET COUNT 228 10x3/uL (130-400)
[2017-06-27 05:53] LABS: ANION GAP 21.6 mmol/L (8-16); CALCIUM 9.1 mg/dL (8.5-10.1); CARBON DIOXIDE 23.8 mmol/L (21.0-32.0); CREATININE - SERUM 9.4 mg/dL (0.6-1.3); POTASSIUM - SERUM 3.4 mmol/L (3.5-5.1)
--- NOTE | 2017-06-27 07:32 | NUR ---
AM ROUNDING- RECEIVED REPORT FROM [employer] NURSE FIFI. PT IS CURRENTLY LAYING IN BED ON RIGHT SIDE WITH EYES CLOSED RESTING. ON ROOM AIR. NO MONITOR. RIGHT TRIALYSIS SEEN. RESERVE LEFT ARM FOR AVF. NPO ORDERED FOR PROCEDURE TODAY. CONSENTS ARE SIGNED AND IN CHART PER [employer] NURSE FIFI. NO NEED AT THIS TIME. WILL CONTINUE TO MONITOR AND CONTINUE WITH PLAN OF CARE.
[2017-06-27 08:48] VITALS: BP 128/57
--- NOTE | 2017-06-27 11:01 | NUR ---
SITED PT TO LEFT FOREARM AREA WTIH 22G IV CATHETER X2 STICK. PT STATES HE HAS OLD AVF SITE THERE THAT DOES NOT WORK AND THAT IS USUALLY WHERE HE GETS IVS. PT IS GOING FOR PROCEDURE TODAY. IV INSERTED FOR BACKUP USE. NO NEED AT THIS TIME. WILL CONTINUE TO MONITOR.
--- NOTE | 2017-06-27 11:07 | NUR ---
LUCHO FROM OR CALLED TO STATE TO GO AHEAD AND PRE-OP PT. INFORMED LUCHO THAT THIS NURSE SITED PT TO LEFT FOREARM WITH 22G IV. INFORMED LUCHO THAT EKG HAS NOT BEEN DONE YET. LUCHO STATES TO GO AHEAD AND GIVE MEDICATION AND GET EKG DONE BUT THEY ARE IN NO SUERO. WILL GIVE PT PRE-OP MEDICATIONS ORDERED AND GET EKG DONE.
--- NOTE | 2017-06-27 11:29 | NUR ---
PRE-OP MEDICATIONS GIVEN WITH SIP OF WATER. IV FLUIDS HUNG AND TUBING PRIMED. EKG PER ORDER AND PLACED IN CHART.
[2017-06-27 12:48] VITALS: BP 119/47
--- NOTE | 2017-06-27 13:19 | NUR ---
PT TO OR VIA BED.
--- NOTE | 2017-06-27 13:28 | NUR ---
Patient Name: TOAN BENTLEY Encounter No: [id number] : 1960 Primary Insurance: MEDICARE A & B Anticipated DC Date: 06-28-2017 Planned Disposition: Home DCP follow-up note: CM MET WITH PT IN ROOM TO DISCUSS DISCHARGE NEEDS AND PLANNING. CM DISCUSSED AVAILABILITY OF HOME HEALTH, REHAB SERVICES AND MEDICAL EQUIPMENT. PT WOULD LIKE A STANDARD WALKER FOR STABILITY, DENIES FURTHER DISCHARGE NEEDS; PT HAS NO PREFERENCE ON MEDICAL EQUIPMENT PROVIDER. PT IN AGREEMENT WITH DISCHARGE HOME TOMORROW, FAMILY TO TRANSPORT HOME AT DISCHARGE. IMPORTANT MESSAGE FROM MEDICARE PROVIDED AND EXPLAINED. CM CALLED [facility], , SPOKE TO NELL WHO REPORTS HAVING AN OFFICE IN [place], CLOSE TO PT' S HOME IF NEEDED. THEY WILL PROCESS THE ORDER FOR WALKER IN [place] OFFICE AND DELIVER TO PT'S ROOM FOR DISCHARGE TOMORROW. CM PAGED AND SPOKE TO RENAL NURSE DEBORA, OBTAINED ORDER FOR WALKER. CM FAXED ORDER AND MEDICAL DOCUMENTATION TO [facility] AT [phone]. PT'S FAMILY NOTIFIED IN ROOM, PT IS GONE TO PROCEDURE. Julio Cesar Oseguera, CASE MANAGEMENT
--- NOTE | 2017-06-27 14:28 | NUR ---
Nutrition follow-up: Pts diet advanced to regular with po intake ~25-50% of meals Pt NPO for procedure today Labs reviewed Possible d/c tomorrow RDN following.
--- NOTE | 2017-06-27 14:54 | NUR ---
AV FISTULA ASSESED TO RT ARM NO BRUIT OR THRILL NOTED
[2017-06-27 15:13] VITALS: BP 103/46
--- NOTE | 2017-06-27 15:15 | NUR ---
PT BACK FROM OR VIA BED. PT IS ALERT AND ORIENTED. ON ROOM AIR. PT IS C/O 6/10 PAIN FROM INSICION SITE (HEMOSPLIT CATHETER TO RIGHT CHEST AREA). VITAL SIGNS BEING TAKEN PER PROTOCOL. PT IS REQUESTING CUP OF ICE. WILL CONTINUE TO MONITOR.
--- NOTE | 2017-06-27 15:39 | NUR ---
PT TO DIALYSIS VIA BED.
--- NOTE | 2017-06-27 17:45 | NUR ---
PTS DAUGHTER CALLED. GAVE HER AN UPDATE ON PT STATUS. PT IS CURRENTLY STILL IN DIALYSIS.
[2017-06-27 22:46] VITALS: BP 108/49
--- NOTE | 2017-06-28 04:40 | NUR ---
ASSESSMENT COMPLETE, SEE FLOWSHEET, PT DENIES ANY NEEDS AT THIS TIME, BED IS LOW, SRX2, CALL LIGHT IN REACH, WILL CONTINUE PLAN OF CARE
[2017-06-28 05:05] VITALS: BP 106/71
--- NOTE | 2017-06-28 07:22 | NUR ---
AM ROUNDING- RECEIVED REPORT FROM FACTORY MAINTENANCE TECHNICIAN NURSE FIFI. PT IS CURRENTLY LAYING IN BED ON BACK. PT STATES HE HAS TROUBLE BREATHING. PT SITS UP ON SIDE OF BED. THIS NURSE CHECKED PTS 02 AT WHICH IS 99% ON 02 AT 3.5L VIA NC. PT INSTRUCTED TO LET ME KNOW IF HAVING ANY OTHER DIFFICULTY. PT AGREES. NO MONITOR. IV SEEN TO LEFT FOREARM THAT IS CURRENTLY SALINE LOCKED. RIGHT CHEST HEMOSPLIT SEEN FOR DIALYSIS. RESERVE RIGHT ARM FOR OLD AVF. NO NEED AT THIS CURRENT TIME. WILL CONTINUE TO MONITOR AND CONTINUE WITH PLAN OF CARE.
[2017-06-28 08:00] VITALS: BP 122/52
--- NOTE | 2017-06-28 09:40 | OP ---
PATIENT NAME: TOAN BENTLEY MEDICAL RECORD: [id number] :64 LOCATION:D. D.2105 ADMISSION DATE:06/19/17 SURGEON: ALLI CORREA MD DATE OF OPERATION: 06/27/2017 PREOPERATIVE DIAGNOSIS: End-stage renal disease without chronic access for hemodialysis. POSTOPERATIVE DIAGNOSIS: End-stage renal disease without chronic access for hemodialysis. PROCEDURE: Placement of a 19-cm HemoSplit catheter (cuffed dual-lumen hemodialysis catheter). This was performed under fluoroscopic guidance. The was immediate surgeon interpretation of the fluoroscopic images. SURGEON: Alli Correa MD BUILDING SUPPLIES SALESPERSON RETAIL: None. BLOOD LOSS: Minimal. ANESTHESIA: Local with IV sedation. COMPLICATIONS: None. The risks, possible complications, and alternatives to the procedure were explained to the patient. He elects to proceed. No radiologist was present for this procedure. Static fluoroscopic images were obtained and were kept in the PACS system. The surgeon interpretation of the radiographic images is dictated within the body of this operative note. OPERATIVE COURSE: The patient was conveyed to the operating room electively on 06/27/2017. IV sedation was induced by the anesthesia staff. The right neck and right chest were sterilely prepped and draped. A local anesthetic was used to infiltrate the skin and subcutaneous tissues at the base of the right neck as well as in the right supraclavicular and infraclavicular anterior chest. A skin nano was accomplished in the right infraclavicular chest. A guidewire was advanced down through the distal lumen of the dialysis catheter. The dialysis catheter was removed. I then tunneled a 19-cm HemoSplit catheter from the chest incision to the neck incision. Over the wire, I dilated to a larger size. This was visualized under fluoroscopy. A dilator sheath was then advanced over the wire. The dilator and wire were removed. Through the sheath, the lumens of the HemoSplit catheter were advanced. The Peel-Away sheath was then removed. I then pulled back on the hub of the HemoSplit catheter in order to seat the cuff in the subcutaneous tissues. The neck incision was closed with horizontal mattress 3-0 Vicryl sutures. The hub of the HemoSplit catheter was sutured to the underlying skin with 2-0 nylons. Both lumens flushed easily and aspirated dark, nonpulsatile blood. An image over the mediastinum revealed no apparent kinking or twisting of the HemoSplit catheter. The longest tip of the HemoSplit catheter is likely at the junction of the right innominate vein and superior vena cava. I then topped off both lumens of the HemoSplit catheter with the appropriate amount of concentrated heparin. Sterile dressings were applied. OPERATIVE REPORT [id number] TOAN BENTLEY The patient was then conveyed to the post-anesthesia care unit where he was in stable condition. TRANSINT:[id number] Voice Confirmation ID: [id number] DOCUMENT ID: [id number] ALLI CORREA MD at 0940 CC: QIAN MAO MD and WILFREDO ROJO MD [id number] DICTATION DATE: 06/27/17 1524 PICKER TENDER HELPER: 06/27/17 1618 ADM IN [facility] [address] [place] [address]
--- NOTE | 2017-06-28 09:40 | CN ---
PATIENT NAME:TOAN BENTLEY MEDICAL RECORD: [id number] : 64 LOCATION:D. D.2105 ADMIT DATE: 06/19/17 ACCOUNT: [id number] CONSULTING PHYSICIAN: ALLI CORREA MD REFERRING PHYSICIAN: QIAN MAO MD DATE OF CONSULTATION: 06/26/2017 DATE OF SERVICE: 06/26/2017 CHIEF COMPLAINT: Cardiac arrest. HISTORY OF PRESENT ILLNESS: The patient reportedly had a cardiac arrest up in [place]. The patient has a non-tunneled dialysis catheter, a Trialysis type of catheter at the right internal jugular site. I am going to plan for placement of tunneled catheter in the operating room tomorrow. The risks, possible complications and alternatives to the procedure were explained to the patient. He elects to proceed. The patient is having some dyspnea. Also fatigue. Otherwise, pretty much without complaints. The patient has been hyperkalemic. This is a consultation note addendum. For the typed portion of the consult note, please see the chart. These include the past medical and surgical history, allergies, current medications as well as family history. REVIEW OF SYSTEMS: Some nausea, no vomiting, no fever, no chills, some orthopnea, some dyspnea with exertion, some musculoskeletal chest pain. The review of systems is negative other than as is described above. PHYSICAL EXAMINATION: GENERAL: The patient does not appear acutely ill. He does appear chronically ill. VITAL SIGNS: Reviewed. HEAD: External ears appear normal. EYES: Extraocular movements are intact. NECK: Trachea is midline. CHEST: No intercostal retractions. PULMONARY: Mildly labored. No stridor. ABDOMEN: No peritonitis with movement. EXTREMITIES: No peripheral cyanosis. INTEGUMENT: No rash. PSYCHIATRIC: Normal affect. NEUROLOGIC: Some evidence of loss of higher cortical function. BACK: No thoracic kyphosis. LYMPHATICS: No lymphangitic streaking of the exposed extremities. IMPRESSION: End-stage renal disease without chronic access for hemodialysis. PLAN: Will be a tunneled catheter placement in the operating room tomorrow. TRANSINT:[id number] Voice Confirmation ID: [id number] DOCUMENT ID: [id number] CONSULT REPORT [id number] TOAN BENTLEY ROBERT MD at 0940 CC: [id number] DICTATION DATE: 06/27/17 1520 EXECUTIVE ASSOCIATE: 06/27/17 1557 ADM IN [facility] [address] [place] [id number]
[2017-06-28 12:00] VITALS: BP 111/50
[2017-06-28 15:39] VITALS: BP 101/45
--- NOTE | 2017-06-28 16:25 | NUR ---
PT HAS BEEN WONDERING WHEN DOCTOR WILL COME SEE HIM TO BE D/C TODAY. NO DOCTOR HAS SEEN PT TODAY SO FAR. EVA JIMENEZ NP PAGED. WILL AWAIT CALLBACK AND CONTINUE TO MONITOR.
--- NOTE | 2017-06-28 16:56 | NUR ---
THIS NURSE AND TAMMIE MADDOX NOTICED PT DOES HAVE D/C ORDERS YESTERDAY TO SEE HOW PT TOLERATES DIALYSIS WITH HEMOSPLIT CATHETER YESTERDAY AND D/C TODAY. PT STATES NO ONE WILL BE ABLE TO GET HIM TONIGHT PROBABLY AND THAT HE WOULD HAVE TO DIALYZE HERE TOMORROW AND THEN SOMEONE CAN GET HIM AFTER. EVA JIMENEZ NP PAGED FOR SECOND TIME TO INFORM HER OF THIS. WILL AWAIT CALLBACK.
--- NOTE | 2017-06-28 17:04 | NUR ---
EVA JIMENEZ APN PAGED FOR THIRD TIME TO INFORM HER OF PT NOT HAVING TRANSPORTTION HOME TONIGHT AND NEEDING TO DIALYZE HERE TOMORROW AND THEN GO HOME AFTER. WILL AWAIT CALLBACK.
--- NOTE | 2017-06-28 17:16 | NUR ---
PT IS CURRENTLY SITTING UP ON SIDE OF BED EATING DINNER. STILL AWAITING EVA JIMENEZ NP TO CALLBACK. NO NEED AT THIS CURRENT TIME. WILL CONTINUE TO MONITOR.
--- NOTE | 2017-06-28 17:21 | NUR ---
RECEIVED CALLBACK FROM EVA JIMENEZ NP. EVA JIMENEZ NP INFORMED OF SITUATION. EVA JIMENEZ NP STATES OK FOR PT TO DILAYZE TOMORROW AND THAT SHE WILL CALL DIALYSIS NURSES AND MAKE SURE HE IS FIRST ON THE LIST AND THEN HE CAN GO HOME AFTER.
--- NOTE | 2017-06-28 18:30 | NUR ---
UPON TALKING WITH PT, THIS NURSE NOTICED PT HAD LARGE SCAR TO BACK OF NECK AREA THAT APPEARS TO BE SCABBED OVER. WHEN THIS NURSE ASKED PT HOW HE GOT IT PT STATES HE THINKS FROM [facility].
--- NOTE | 2017-06-28 19:00 | NUR ---
ROUNDING NOTE: PT SITTING AT EDGE OF BED. STATES THAT HE WAS SUPPOSED TO GO HOME TODAY, BUT DUE TO AN OVERSIGHT HE WASN'T TOLD ABOUT THE D/C SO HE WASN'T ALEXA TO GET A RIDE ARRANGED. THE PLAN IS FOR PT TO BE DIALYZED AND D/C'D HOME TOMORROW. PT HAS A RIGHT CHEST HEMOSPLIT FOR DIALYSIS ACCESS. HE IS RIGHT ARM RESERVE D/T CLOTTED AVF SITE. LEFT FOREARM SALINE LOC IN PLACE. WILL CONT TO MONITOR. PT DENIES ANY NEEDS.
[2017-06-28 23:13] VITALS: BP 107/93
[2017-06-29 03:45] LABS: BASOPHILS 0.4 % (0-2); EOSINOPHILS 1.2 % (0-7); HEMATOCRIT 32.8 % (42.0-54.0); HEMOGLOBIN 10.7 g/dL (13.5-17.5); IMMATURE GRANULOCYTES 0.7 % (0-5); LYMPHOCYTES 10.2 % (15-50); MCH 26.8 pg (26.0-34.0); MCHC 32.6 g/dL (31.0-37.0); MEAN PLATELET VOLUME 8.9 fL (7.4-10.4); NEUTROPHILS 72.5 % (40-80); PLATELET COUNT 241 10x3/uL (130-400); RDW 16.1 % (11.5-14.5); WBC 7.7 10x3/uL (4.8-10.8)
[2017-06-29 04:27] VITALS: BP 145/63
--- NOTE | 2017-06-29 05:00 | NUR ---
PATIENT EXPERIENCED SOB AND SEVERE STRIDOR IN THE MIDDLE OF THE NIGHT REQUIRING RACEMIC EPI UPDRAFT. THE STRIDOR INITALLY BECAME MORE SEVERE DESPITE THIS TX AND THE STRIDOR COULD BE HEARD FROM THE NURSING STATION. IN ADDITION, PT WITH SEVERE JVD. IN PARTICULAR, THE RIGHT SIDE OF HIS NECK AND CHEST WITH SIGNIFICANT SWELLING. CALLED PT'S CONDITION CHANGE TO RENAL ENROLLMENT CLERK SERVICE TEAM LEADER, EVA. CONSIDERATION WAS MADE TO SEND HIM TO THE ICU, BUT WE DID HAVE ANY ICUE BEDS. ORDERS RECEIVED FOR IV STEROIDS, STAT CXR (WHICH SHOWED CHF), STAT ABG, STAT CBC. PT'S RIGHT CHEST HEMESPLIT BEGAN TO BLEED, SO AN ELASTOPLAST PRESSURE DRESSING WAS APPLIED TO THE SITE. PT HAS SLOWLY IMPROVED AND STABILIZED. PT'S VS AND OXYGEN SATURATION LEVEL HAVE REMAINED STABLE THROUGHOUT THESE EVENTS. ICU NURSE AND WOOD MILL SUPERVISOR AND WOOD MILL SUPERVISOR ALSO INVOLVED IN DECISION MAKING AND ASSESSMENT OF THIS PATIENT. WILL CONTINUE TO CLOSELY MONITOR THIS PATIENT.
--- NOTE | 2017-06-29 07:57 | NUR ---
AM ROUNDING- RECEIVED REPORT FROM NET LEAD ARCHITECT NURSE ASPEN. PT IS CURRENTLY SITTING UP ON SIDE OF BED. PT APPEARS TO HAVE STRIDOR SOUNDS BUT STATES HE HAS LITTLE SOB. PARTH, WITH RESP IS AWARE. PULSE OX CHECKED AND 02 SAT IS 100%. PARTH, WITH RESP STATES SHE IS GOING TO GIVE HIM BREATHING TX. 0N 02 AT 2L VIA NC. NO MONITOR. IV SEEN TO LEFT FOREARM THAT IS CURRENTLY SALINE LOCKED. RIGHT CHEST HEMOSPLIT SEEN FOR DIALYSIS WITH LARGE DRESSING OVER THAT TAMMIE LOUISE PLACED DURING NET LEAD ARCHITECT DUE TO BLEEDING (ELASTOPLAST DRESSING). EVA JIMENEZ NP IS AWARE. NO NEED AT THIS CURRENT TIME. WILL CONTINUE TO MONITOR AND CONTINUE WITH PLAN OF CARE.
[2017-06-29 08:30] VITALS: BP 136/56
--- NOTE | 2017-06-29 08:48 | NUR ---
PT TO DIALYSIS VIA WHEELCHAIR. INFORMED YUE VERA TO INFORM DIALYSIS NURSES TO CALL ME REGARDING PTS DRESSING TO RIGHT CHEST HEMOSPLIT THAT EARLY LEARNING TEACHER PLACED PER EVA JIMENEZ NP (RENAL EMAIL SPECIALIST) FOR BLEEDING.
--- NOTE | 2017-06-29 09:33 | NUR ---
EVA JIMENEZ NP IGNACIA THIS NURSE TO SEE WHATS GOING ON WITH PT. EVA JIMENEZ NP HAD TALKED TO BACK END ARCHITECT NURSE AND IS AWARE OF PTS STRIDOR AND BLEEDING FROM HEMOSPLIT. INFORMED EVA JIMENEZ NP THAT WHEN I GOT TO UNIT THIS MORNING THIS NURSE WENT TO CHECK ON PT AND PT HAD WHAT APPEARD TO BE STRIDOR SOUNDS AUDIBLE IN PTS ROOM. 02 SAT CHECKED WHICH WAS 100%. EVA JIMENEZ NP INFORMED THAT RESP DID COME INTO ROOM TO CHECK PT AND GAVE PT RACEMIC BREATHING TX. EVA JIMENEZ NP STATES SHE WILL CALL YFN GUTIERREZ NP WHO IS NOW PAID SEARCH MARKETING ANALYST AND INFORM HER OF SITUATION. EVA JIMENEZ NP STATES TO CALL YFN GUTIERREZ NP ONCE PT RETURNS FROM DIALYSIS TO INFORM HER OF PT STATUS. WILL DO ORDERED. PT IS IN DIALYSIS NOW.
--- NOTE | 2017-06-29 10:42 | NUR ---
0945-CHINO WITH RESP CAME TO INFORM ME THAT DIALYSIS CALLED AND PT ISN'T "LOOKING TOO GOOD". THIS NURSE WENT TO DIALYSIS UNIT TO CHECK ON PT. PT APPEARS SOB. AUDIBLE STRIDOR HEARD. PTS 02 SAT IS 94%. RESP IN DIALYSIS WITH ME ASSESSING PT. PTS RUL HAS EX WHEEZING, ALL OTHER LOBES ARE CLEAR. VARSHA GUTIERREZ NP CALLED AND INFORMED OF SITUATION. VARSHA GUTIERREZ NP ALSO SPOKE WITH CHINO (RESP) REGARDING SITUATION. PT IS TACHYCARDIC AT 121. DIALYSIS NURSE CLINT STATES SHE WILL CALL ME IF FURTHER DISTRESS IS SEEN. THIS NURSE SPOKE WITH VARSHA GUTIERREZ NP AGAIN. YFN GUTIERREZ NP GIVES TELEPHONE ORDERS TO TRANSFER PT TO ICU FOR RESP DISTRESS. EENT CONSULTED PER COMMUNICATIONS EXECUTIVE FOR POSSIBLE UPPER RESP INFLAMMATION CAUSING RESP DISTRESS/STRIDOR. MEDROL DOSE PACK ORDERED PER VARSHA GUTIERREZ NP. CHINO GIVES PT BREATHING TX (RACEMIC) IN DIALYSIS. PT APPEARS TO CALM DOWN SOME AFTER BREATHING TX. RUBY VALENCIAPAINT STOCKMAN CALLED FOR ICU BED. AWAITING ROOM IN ICU. PT WILL FINISH DIALYSIS THEN TRANSFER. DR. GALLEGOS ON UNIT. THIS NURSE INFORMS HIM OF SITUAION. DR. GALLEGOS STATES HE WILL GO CHECK ON PT IN DIALYSIS HOWEVER DR. MARIE IS RENAL DOCTOR MEDICAL STAFF ASSISTANT.
--- NOTE | 2017-06-29 11:16 | NUR ---
SPOKE WITH DR. BURK. DR. BURK STATES TO HAVE AFRIN SPRAY AT BEDSIDE WITH PT WHEN HE COMES TO SEE PT. ORDER PLACED GIVEN. PHARMACY CALLED, DESTINY STATES THEY WILL GET AFRIN SPRAY TO DIALYSIS WITH PT.
--- NOTE | 2017-06-29 11:50 | NUR ---
THIS NURSE RECEIVED CALL FROM JER IN ICU. NICHOLAS STATES THAT DR. ARAYA STATES PT DOES NOT HAVE "TRUE STRIDOR". DR. ARAYA HAS NOT SEEN PT ON SHIFT TODAY. NICHOLAS MADE AWARE THAT RESP AND I HAVE BEEN IN DIALYSIS ASSESSING PT AND PT STATES HE IS SOB. CHINO WITH RESP AND I OBSERVED PT EXPERIENCING WHAT APPEARS TO BE SLIGHT STRIDOR WITH THE PT EXPRESSING THAT HIS DIFFICULTY OF BREATHING IS LOCATED IN UPPER AIRWAY. PT HAS BEEN IN DISTRESS RELATED TO BREATHING. NICHOLAS STATES SHE WILL CALL ME BACK.
--- NOTE | 2017-06-29 12:03 | NUR ---
NGUYEN NASAL SPRAY IN DIALYSIS AT BEDSIDE WITH PT.
--- NOTE | 2017-06-29 12:22 | CN ---
PATIENT NAME:TOAN CANCINO MEDICAL RECORD: [id number] : 64 LOCATION:D. D.2105 ADMIT DATE: 06/19/17 ACCOUNT: [id number] CONSULTING PHYSICIAN: SANTIAGO ARAYA MD REFERRING PHYSICIAN: QIAN MAO MD DATE OF CONSULTATION: 06/19/2017 56 yo AAM with ESRD admitted to [facility] 06/16/17 for fistulagram and coded during procedure. Since that time has remained on the vent. ECHO reveals EF 65-70% aortic valvue with sclerotic well organized vegitataion. (I belive patient has history or recent endocarditis). 06/17/17 had cardiac cath which had no significant lesions Past Medical History: ESRD HTN h/o nephrectomy Neurological Hx: NONE EENT Hx: NONE Endocrine Hx: NONE Cardiovascular Hx: HTN, CHF Respiratory Hx: NONE Cancer Hx: RT KIDNEY Immune Disorders: NONE Gastrointestinal Hx: NONE Psychosocial Hx: DEPRESSION, ANXIETY PAST SURGICAL HISTORY: 1. Right nephrectomy. 2. Dialysis access placement. ALLERGIES: There are no known drug allergies. MEDICATIONS: He was on Ultram, oxycodone, hydralazine, and labetalol. PERSONAL AND SOCIAL HISTORY: The detail is not obtainable. Per old notes, the patient never smoked. FAMILY HISTORY: Significant for coronary artery diseases. PHYSICAL EXAMINATION: GENERAL: Now, the patient is orally intubated and sedated. VITAL SIGNS: The blood pressure is 107/47, pulse is 67, respirations 17, temperature is 99, SpO2 is 97% on mechanical ventilation, 40% oxygen. HEENT: Conjunctiva is pink. The sclerae are not icteric. The pupils are very sluggish. NECK: Supple. There is elevated JVD. CHEST: There are bibasilar crackles. No wheezing. HEART: Rhythm regular, normal sound, no murmur. ABDOMEN: Soft, bowel sounds present. No hepatosplenomegaly. RECTAL: Deferred. EXTREMITIES: No cyanosis, no clubbing. There is 1+ pedal edema. SKIN: Warm, normal turgor. CONSULT REPORT [id number] TOAN CANCINO CENTRAL NERVOUS SYSTEM: The patient is sedated and unresponsive. IMAGING: CT scan of the chest from [facility], report on 06/16/2017, there was no PE, but there are bilateral lower airspace infiltrate. LABORATORY DATA: Chemistry: The sodium is 134, potassium 6.3 today. The BUN is 89 and creatinine 11.2. CBC: WBC 18.08, hemoglobin 11, hematocrit 34.1, the platelet count 103, these labs are from [place] this morning. IMPRESSION: 1. Acute respiratory failure. 2. Cardiac arrest times 2. 3. Possible anoxic encephalopathy. 4. Bibasilar infiltrate, possible aspiration pneumonia during the resuscitation. 5. End-stage renal disease, on hemodialysis. 6. Hyperkalemia. 7. Hypertension. Now, the patient is hypotensive. RECOMMENDATION: 1. Continue mechanical ventilation. Start empiric Zosyn. 2. Check sputum for culture and sensitivity. GI ulcer prevention, DVT prophylaxis. Follow series of labs and chest radiograph. Hemodialysis per Dr. Mao. The patient will need workup for possible anoxic encephalopathy. Dr. Mao thank you for involving me in the care of Mr. Cancino. The critical care time is 50 minutes. TRANSINT:[id number] Voice Confirmation ID: [id number] DOCUMENT ID: [id number] SANTIAGO ARAYA MD at 1222 CC: QIAN MAO MD [id number] DICTATION DATE: 06/19/17 1651 MENTAL HEALTH DIRECTOR: 06/19/17 193 ADM IN [place] [id number] [place] [address]
--- NOTE | 2017-06-29 12:28 | NUR ---
VARSHA GUTIERREZ NP CALLED. INFORMED THAT I RECEIVED CALL FROM NICHOLAS IN ICU AND PER DR. ARAYA PT DOESN'T HAVE "TRUE STRIDOR". THIS NURSE JUST SPOKE WITH CLINT IN DIALYSIS AND CLINT STATES PT IS HAVING DIFFICULTY BREATHING. VARSHA GUTIERREZ NP STATES TO CALL DR. ARAYA AND HAVE HIM SEE PT. TELEPHONE ORDERS GIVEN FOR ATIVAN PRN. VARSHA GUTIERREZ NP STATES DR. MARIE (BEZEL CUTTER DOCTOR WITH RENAL) IS AWARE AND WILL SEE PT TODAY.
--- NOTE | 2017-06-29 13:55 | NUR ---
DR. ARAYA PRESENT ON FLOOR TO ASSESS PT. PT SITTING UP AT BEDSIDE WITH NC AT 5 LPM PULSE OX 98%, NO STRIDOR NOTED OR DIFFICULTY WITH RESP. DR. ARAYA STATES THERE IS NO NEED TO MOVE PT TO ICU, nori GUTIERREZ APN NOTIFIED AND STATES TO CANCEL ICU TRANSFER ORDERS AT THIS TIME. ENT CONSULTED TO SEE PT FOR EXAM. CONT. TO MONITOR.
--- NOTE | 2017-06-29 14:24 | NUR ---
PRIOR ON SHIFT. THIS NURSE BROUGHT PT BACK FROM DIALYSIS. UPON GETTING PT BACK TO BED, THIS NURSE NOTICED PT BLEEDING FROM HEMOSPLIT (RIGHT CHEST). TAMMIE THAKKAR AND TAMMIE PLAZA CAME IN ROOM TO ASSIST. TAMMIE THAKKAR HELD FIRM DIRECT PRESSURE OVER SITE. TAMMIE PLAZA WENT TO ICU TO OBTAIN SURGICELE. OLD DRESSING (PLACED BY DIALYSIS NURSES) REMOVED. LARGE CLOT SEEN OVER HEMOSPLIT SIGHT AND LEFT INTACT FROM AIRCRAFT MAINTENANCE ENGINEER. DR. MADELINE GREENE. RETURNED CALL, EXPLAINATION OF SITUAION GIVEN. NEW ORDERS RECEIVED; BED HIGHEST ELEVATION, SURGICELE PLACEMENT, PRESSURE DRESSING APPLIED. PURSE LIP BREATHING TEACHING DONE BY TAMMIE PLAZA. EXPLANATION OF SIDE EFFECTS OF SOLU-MEDROL AND BREATHING TX. ALL QUESTIONS ANSWERED. SUPPORT PROVIDED TO RIGHT ARM TO PREVENT PULLING. PT AND FAMILY X2 AT BEDSIDE, DENIES ANY NEEDS. WILL CONTINUE TO MONITOR.
--- NOTE | 2017-06-29 14:46 | NUR ---
PT IS CURRENTLY SITTING UP IN BED (HOB ELEVATED AT 40 DEGREES). NO BLEEDING SEEN FROM HEMOSPLIT SITE. FAMILY IS IN ROOM NOW. NO NEED AT THIS TIME. WILL CONTINUE TO MONITOR.
[2017-06-29 15:28] VITALS: BP 144/53
--- NOTE | 2017-06-29 16:23 | NUR ---
PTS SISTER COMES TO INFORM ME THAT PTS BLEEDING FROM HEMOSPLIT SITE. THIS NURSE WENT STRAIGHT TO PTS ROOM TO ASSESS PT. BLEEDING SEEN FROM HEMOSPLIT SITE. THIS NURSE APPLIED FIRM, DIRECT PRESSURE ON SITE. TAMMIE YARBROUGH AND BENITO MCFARLAND, RN ASSISTED. SAND BAG PLACED OVER SITE. DR. CORREA CALLED. BENITO MCFARLAND RN SPOKE WITH DR. CONTRERAS NURSE AND STATES DR. CORREA WILL BE OVER SOON HE CAN TO UNIT. TAMMIE YARBROUGH CHANGED PTS DRESSING WITH ASSITANCE FROM TAMMIE ROTHMAN (WOUND CARE NURSE) WITH SURGICELE DRESSING. DR. CORREA CAME TO SEE PT. DR. CORREA CHANGED PTS DRESSINGS WITH INTERVETIONS TO SITE. DR. CORREA STATES TO CALL IF HAVE ANYMORE PROBLEMS.
--- NOTE | 2017-06-29 18:13 | NUR ---
DR. BURK JUST LEFT UNIT AFTER ASSESSING PT. DR. BURK SPOKE WITH DR. CORREA (PAGED WHILE ON UNIT). DR. BURK STATES THE ONLY THING HE RECOMMENDS FOR FURTHER EVALUATION IS CT SCAN OR BRONCHOSCOPY REGARDING PTS STRIDOR SOUNDS. NO NEW ORDERS RECEIVED. PT IS CURRENTLY SITTING UP IN BED WITH EYES OPEN RESTING. DRESSING TO RIGHT CHEST HEMOSPLIT IS CLEAN, DRY, AND INTACT. NO NEED AT THIS CURRENT TIME. WILL CONTINUE TO MONITOR.
--- NOTE | 2017-06-29 19:30 | NUR ---
PT IN CHAIR AT BEDSIDE VISITING WITH FRIENDS AND FAMILY. NO S/S OF DISTRESS. NO BLEEDING NOTED TO RIGHT CHEST AREA. NO COMPLANTS MADE KNOWN. CALL LIGHT IN REACH. WILL CONTINUE TO OBSERVE.
[2017-06-29 21:14] VITALS: BP 131/52
[2017-06-29 23:29] VITALS: BP 128/54
--- NOTE | 2017-06-30 03:01 | NUR ---
PT IN BED WITH EYES CLOSED AND CHEST RISING. EASILY AROUSED TO VERBAL STIMULI. NO S/S OF DISTRESS NOTED. NO BLEEDING NOTED. WILL CONTINUE TO OBSERVE. CALL LIGHT IN REACH.
[2017-06-30 04:49] VITALS: BP 109/48
--- NOTE | 2017-06-30 07:15 | NUR ---
RECIEVED REPORT ON PATIENT, PATIENT IS ALERT AND ORIENTED AT THIS TIME. PATIENT HAS A L FA IV THAT IS SL AT THIS TIME. HEMOSPLIT NOTED TO R CHEST. PATIENT DENIES ANY NEEDS OR PAIN AT THIS TIME. BED IS LOW AND LOCKED. CALL LIGHT IN REACH. CPOC
[2017-06-30 08:55] VITALS: BP 128/51
--- NOTE | 2017-06-30 09:30 | NUR ---
MORNING MEDICATIONS GIVEN WITH NO ISSUES. PATIENT DID REFUSE BP MEDICATION. BP IS 128/51, PATIENT STATES HE TENDS TO DROP EASY, AND HE WANTS TO WAIT. CPOC
--- NOTE | 2017-06-30 11:30 | NUR ---
PATIENT SITTING UP IN CHAIR. DENIES ANY NEEDS OR PAIN AT THIS TIME. CPOC
[2017-06-30 12:05] VITALS: BP 111/48
--- NOTE | 2017-06-30 13:35 | NUR ---
PATIENT INFORMED ME THAT HE HAS HAD A STITCH IN HIS RIGHT FA, THAT HAS BEEN IN FOR OVER 3 WEEKS. ASKED IF I COULD REMOVE, SPOKE WITH DEBORA SOTO APN AND SHE ORDERED TO REMOVE. 1 STITCH REMOVED WITH NO ISSUES. CPOC
--- NOTE | 2017-06-30 15:30 | NUR ---
PATIENT SITTING UP IN CHAIR VISITNG WITH FAMILY DENIES ANY NEEDS AT THIS TIME. WILL CONT TO MONITOR PATIENT. CPOC
--- NOTE | 2017-06-30 17:25 | NUR ---
PATIENT SITTING ON SIDE OF BED EATING DINNER. DENIES ANY NEEDS OR PAIN, WILL CONT TO MONITOR PATIENT. CPOC
--- NOTE | 2017-06-30 18:12 | NUR ---
PATIENT INFORED IT IS NEAR THE END OF THE SHIFT AND THAT I WILL BE LEAVING SOON. PATIENT IS RESTING IN BED, DENIES ANY NEEDS OR PAIN AT THIS TIME. BED IS LOW AND LOCKED. CALL LIGHT IS IN REACH. CPOC
[2017-06-30 21:38] VITALS: BP 107/50
[2017-07-01 01:30] VITALS: BP 107/46
--- NOTE | 2017-07-01 04:20 | NUR ---
PT RESTING COMFORTABLY AT THIS TIME, NO NEEDS. DRESSING CHANGED AND TEGADERM REPLACED OVER INCISION IN PTS NECK FROM PREVIOUS CVL. CONTINUE TO MONITOR CLOSELY. BED LOW, CALL LIGHT IN REACH, SIDE RAILS X 2, HOB 20 DEGREES.
[2017-07-01 04:53] VITALS: BP 112/52
--- NOTE | 2017-07-01 07:45 | NUR ---
REPORT RECEIVED. PT UP EATING BREAKFAST. RR EVEN AND UNLABORED, PT DENIES NEEDS AT THIS TIME. WILL CTM.
[2017-07-01 08:26] VITALS: BP 104/50
--- NOTE | 2017-07-01 10:00 | NUR ---
PT TRANSFERRED TO DIALYSIS. IV MEDS NOT GIVEN DUE TO NO IV ACCESS AT THIS TIME, WILL RESTART IV UPON RETURN TO FLOOR AND GIVE MEDS.
--- NOTE | 2017-07-01 14:30 | NUR ---
IV STARTED TO LEFT UPPER ARM X3 STICK, PER RN STUDENTS. WILL GIVE MORNING MEDS AND CTM. PT HAS STRIDOR SINCE RETURN FROM DIALYSIS. PT RECIEVED BREATHING TX, ALERT AND ORIETNED X4. DENIES NEEDS, REPORTS MINIMAL BREATHING DIFFICULTY. WILL CTM.
--- NOTE | 2017-07-01 15:47 | NUR ---
SPOKE TO PTS DAUGHTER REGARDING PT CONDITION. FAMILY IS EXPRESSING CONCERN OVER PTS BREATH SOUNDS. EXPLAINED TO FAMILY THAT ALL VS ARE STABLE AND THE PT HAS RECEIVED A BREATHING TX. I ALSO EXPLAINED THAT THE PT HAS HAD DIALYSIS TODAY. WILL SPEAK TO DR. REYNOLDS REGARDING PT CONDTITION.
--- NOTE | 2017-07-01 15:50 | NUR ---
SPOKE TO DR. REYNOLDS ABOUT PT CONDTION, AT BEDSIDE ASSESSING PT. WILL CTM.
[2017-07-01 16:12] VITALS: BP 146/74
--- NOTE | 2017-07-01 16:57 | NUR ---
PT TRANSFERRED TO CT SCAN. WILL CTM UPON RETURN FROM CT.
--- NOTE | 2017-07-01 18:36 | NUR ---
PT RESTING QUIETLY, NOISY RESPIRATIONS HAVE SINCE RESOLVED AFTER PT COUGHED UP MUCOUS PLUG. PT DENIES NEEDS AT THIS TIME. WILL GIVE REPORT ON PT CONDTION FOR THE DAY.
[2017-07-01 20:00] VITALS: BP 105/44
--- NOTE | 2017-07-01 20:34 | NUR ---
RECIEVED UP IN BED WITH HOB ELEVATED. PLEASANT AND TALKATIVE. DENIEW ANY PAIN AT THIS TIME. CALL LIGHT AND OVERBED TABLE IN REACH.
[2017-07-02] VITALS: BP 111/50
[2017-07-02 04:00] VITALS: BP 100/38
--- NOTE | 2017-07-02 07:20 | NUR ---
REPORT RECEIVED. PT RESTING QUIETLY, RR EVEN AND UNLABORED. PT DENIES NEEDS AT THIS TIME. PT IS HOPING TO BE DISCHARGED TODAY. WILL CTM.
[2017-07-02 07:48] VITALS: BP 126/55
--- NOTE | 2017-07-02 09:00 | NUR ---
SPOKE TO FAMILY MEMBER REGARDING PT CONDTION. GAVE QUICK UPDATE PER REQUEST OF FAMILY.
--- NOTE | 2017-07-02 12:08 | NUR ---
SPOKE TO DR. REYNOLDS REGARDING PT D/C SINCE HE HAS NOT SIGNED OFF YET. REPORTED THAT HE WOULD LIKE PT TO REMAIN IN HOPSTIAL AT LEAST TILL TOMORROW FOR OBSERVATION DUE TO PT SYMPTOMS YESTERDAY. DISCUSSED WITH PT, VERBALIZED UNDERSTANDING. WILL CTM.
[2017-07-02 16:24] VITALS: BP 125/61
--- NOTE | 2017-07-02 18:34 | NUR ---
RR EVEN AND UNLABORED, PT DENIES NEEDS AT THIS TIME. WILL GIVE REPORT ON PT CONDTITION FOR THE DAY.
--- NOTE | 2017-07-02 19:07 | NUR ---
RECIEVED UP IN BED WITH EYES OPEN AND TV ON. PLEASANT AND TALKATIVE. DENIES ANY PAIN /NEEDS AT THIS TIME. IV TO LEFT UPPER ARM SALINE LOCKED. CALL LIGHT AND OVERBED TABLE IN REACH.
[2017-07-02 20:00] VITALS: BP 121/59
[2017-07-03 01:15] VITALS: BP 121/58
[2017-07-03 05:19] VITALS: BP 98/41
--- NOTE | 2017-07-03 07:25 | NUR ---
AM ROUNDING- RECEIVED REPORT FROM MUSIC ARRANGER NURSE DEYSI. PT IS CURRENTLY LAYING IN BED ON LEFT SIDE WITH EYES CLOSED RESTING. ON 02 AT 3L VIA NC. NO MONITOR. IV SEEN TO LEFT UPPER ARM THAT IS CURRENTLY SALINE LOCKED. RIGHT CHEST HEMOSPLIT SEEN FOR DIALYIS. RESERVE RIGHT ARM FOR AVF (NOT IN USE CURRENTLY). NO NEED AT THIS CURRENT TIME. WILL CONTINUE TO MONITOR AND CONTINUE WITH PLAN OF CARE.
[2017-07-03 07:42] VITALS: BP 125/57
[2017-07-03 11:37] VITALS: BP 120/54
--- NOTE | 2017-07-03 12:56 | NUR ---
DR. REYNOLDS ON UNIT. DR. REYNOLDS STATES IT IS OK TO D/C PT LONG IT'S OKAY WITH DR. MARIE. THIS NURSE CALLS DR. MARIE. DR. MARIE STATES OK TO D/C PT HOME. D/C ORDER ALREADY IN FROM YESTERDAY. DR. REYNOLDS STATES HE WANTS PT TO GO HOME ON PREDNISON, MUCINEX DM, AND NEBULIZER WITH NEBULIZER MEDICATIONS. VISHAL MACHINE ROOM OPERATOR MADE AWARE OF THIS.
[2017-07-03] MEDS ORDERED: PREDNISONE10 MG PO (13:57)
[2017-07-03] MEDS ORDERED: ALBUTEROL2.5 MG/3 M INH ×2 (13:58→13:59)
--- NOTE | 2017-07-03 14:41 | NUR ---
D/C INSTRUCTIONS EXPLAINED TO PT AND FAMILY. D/C PAPERWORK SIGNED BY PT AND PLACED IN CHART. IV TO LEFT AC REMOVED WITH CATH TIP INTACT. COVERED SITEW WITH 2X2 GAUZE PADS AND SECURED WITH TAPE. WRITTEN PRESCRIPTIONS GIVEN TO PT AND FAMILY (DAUGHTER). [employer] MADE COPIES OF NEBULIZER PRESCRIPTION. PT AND PTS DAUGHTER STATES COMPANY CALLED TO STATE THEY WOULD BE DELIEVERING PTS NEBULIZER TOMORROW. PT D/C VIA WHEELCHAIR.
--- NOTE | 2017-07-03 14:49 | NUR ---
CM RECEIVED TC FROM SISAL PICKER. DR REYNOLDS HAS ORDERD A NEBULIZER. RX IS PRESENT ON HIS CHART. TC TO [facility] [phone]. REC CB FROM LINNEA. CM FAXED MD ORDER, PULMONARY NOTE AND FACE SHEET TO [phone]. CM CONFIRMED CONTACT INFORMATION. THE PATIENT RECEIVED A TELEPHONE CALL FROM [facility]. THEY WILL DELIVER THE NEBULIZER TO PATIENT'S HOME IN THE AM.
== END 2017-07-03 14:44 | disposition home or self-care (01) | DRG 208 ==
LOC: D.ICU 12:58 → D.M2 15:24
PROVIDERS: Internal Medicine; Internal Medicine Pulmonary Disease; ADMIT Internal Medicine Nephrology
PROC: 5A1D70Z Performance of Urinary Filtration, Intermittent, Less than 6 Hours Per Day (ICD-10-PCS; principal; 2017-06-19)
PROC: 5A1945Z Respiratory Ventilation, 24-96 Consecutive Hours (ICD-10-PCS; 2017-06-19)
PROC: 02HV33Z Insertion of Infusion Device into Superior Vena Cava, Percutaneous Approach (ICD-10-PCS; 2017-06-27)
PROC: B5181ZA Fluoroscopy of Superior Vena Cava using Low Osmolar Contrast, Guidance (ICD-10-PCS; 2017-06-27)
PROC: 0CJS8ZZ Inspection of Larynx, Via Natural or Artificial Opening Endoscopic (ICD-10-PCS; 2017-06-29)
DX: J96.00 Acute respiratory failure, unspecified whether with hypoxia or hypercapnia (principal); N18.6 End stage renal disease; J69.0 Pneumonitis due to inhalation of food and vomit; G93.40 Encephalopathy, unspecified; I13.2 Hypertensive heart and chronic kidney disease with heart failure and with stage 5 chronic kidney disease, or end stage renal disease; T82.590A Other mechanical complication of surgically created arteriovenous fistula, initial encounter; J98.11 Atelectasis; E87.5 Hyperkalemia; I50.9 Heart failure, unspecified; Z99.2 Dependence on renal dialysis; F41.8 Other specified anxiety disorders; D69.6 Thrombocytopenia, unspecified; Z78.1 Physical restraint status; Y83.8 Other surgical procedures as the cause of abnormal reaction of the patient, or of later complication, without mention of misadventure at the time of the procedure